=== PATIENT | female | born 1970 | race Caucasian/White ===

== ENCOUNTER → 2017-11-14 14:13 | Outpatient (REF) | payer MEDICAID, SELFPAY ==
[2017-11-14 14:55] LABS: Basophils # 0.1 K/mm3 (0-0.2); Basophils % 0.4 % (0.1-2.0); Eosinophils # 0.2 K/mm3 (0.0-0.4); Eosinophils % 1.5 % (0.1-12.0); Hematocrit 47.3 % (37.0-47.0); Hemoglobin 15.1 g/dL (12.2-16.2); Lymphocytes # 3.2 K/mm3 (0.7-4.5); Lymphocytes % 28.6 K/mm3 (10-50); Mean Corpuscular Hemoglobin 29.3 pg (27.0-31.2); Mean Corpuscular Volume 91.5 fl (81-99); Mean Platelet Volume 7.7 fl (7.4-10.4); Monocytes # 0.6 K/mm3 (0.1-1.0); Monocytes % 5.3 % (1.7-9.3); Neutrophils # 7.1 K/mm3 (1.8-7.8); Neutrophils % 64.3 % (37.0-80.0); Platelet Count 403 K/mm3 (142-424); Red Blood Count 5.17 M/mm3 (4.20-5.40); White Blood Count 11.1 K/mm3 (4.8-10.8)
[2017-11-14 16:06] LABS: Alanine Aminotransferase 36 U/L (12-78); Albumin Level 4.1 gm/dL (3.4-5.0); Albumin/Globulin Ratio 1.1 (1.1-1.8); Alkaline Phosphatase 51 U/L (46-116); Anion Gap 14.9 mEq/L (5-15); Aspartate Amino Transferase 13 U/L (15-37); Bilirubin,Total 0.4 mg/dL (0.2-1.0); Blood Urea Nitrogen 14 mg/dL (7-18); Calcium 9.7 mg/dL (8.5-10.1); Carbon Dioxide 30 mmol/L (21.0-32.0); Chloride 100 mmol/L (98-107); Chol/HDL Ratio 2.7 (1-3.5); Cholesterol 242 mg/dL (140-200); Creatinine,Serum 0.83 mg/dL (0.55-1.02); Estimated Glomerular Filt Rate 73 ml/min (>60); GFR (African American) 89 ML/MIN (>60); Globulin 3.6 gm/dl (1.3-3.2); Glucose 94 mg/dL (74-106); HDL Cholesterol 91 mg/dL (29-89); LDL Cholesterol 134 mg/dL (0-130); Potassium 3.9 mmoL/L (3.5-5.1); Sodium 141 mmol/L (136-145); T4 (Thyroxine) 9.8 ug/dl (4.7-13.3); Thyroid Stimulating Hormone 1.81 uIU/ml (0.358-3.740); Total Protein,Serum 7.7 gm/dL (6.4-8.2); Triglycerides 83 mg/dL (30-200); VLDL Cholesterol 17 mg/dL (0-40)
[2017-11-18 12:01] LABS: Vitamin D 25 Hydroxy 56.7 ng/mL (30.0-100.0)
== END ==
LOC: LAB 14:13
PROVIDERS: Visit Provider Physician Assistant
DX: E66.9 Obesity, unspecified (principal); Z68.42 Body mass index [BMI] 45.0-49.9, adult; E78.5 Hyperlipidemia, unspecified; I10 Essential (primary) hypertension; M19.90 Unspecified osteoarthritis, unspecified site
CPT/HCPCS: 80053; 80061; 82652; 84436; 84443; 85025

== ENCOUNTER → 2018-01-03 12:39 | Outpatient (POV) | payer MEDICAID, SELFPAY ==
[2018-01-03 12:42] VITALS: BP 165/90; PULSE 116; RESP 24; O2SAT 96; BMI 49.4
--- NOTE | 2018-01-03 13:09 | HMH.PMCON ---
Assessment and Plan (1) Fibromyalgia Current visit: Yes Status: Chronic Category: Medical Code(s): M79.7 - Fibromyalgia (2) Back pain Current visit: Yes Status: Chronic Category: Medical Code(s): M54.9 - Dorsalgia, unspecified (3) Bilateral knee pain Current visit: Yes Status: Chronic Category: Medical Code(s): M25.561 - Pain in right knee; M25.562 - Pain in left knee - Assessment and plan all Dx Assessment and Plan for all problems:: Patient is unable to take gabapentin or Lyrica for her fibromyalgia pain. Patient states that she is currently on Cymbalta and doing well with that. Patient is requesting a Medrol Dosepak for her flare today. We will call this in for her. We will also get her involved in physical therapy and start getting her home stretching program so she can stay active and help with her weight loss. Patient and I discussed injective therapy and potential nerve stimulation however at this time because of her fibromyalgia flare it is hard to determine what pain we should work on first. I will see this patient back in 2 weeks. This note was dictated using voice recognition software and may contain errors or omissions HPI - Data of Consult Consult date: 01/03/18 Requesting Physician: Yanet Gilbert APRN Primary Care Provider: SUSI Street Family Provider: Ngozi Proctor - Consult Narrative Reason for consult: Generalized pain History of present illness: Ms. Wong is a 47 year old female today for consultation for her general pain, back pain, bilateral knee pain. Patient rates her pain 8 out of 10 today. She states that walking, standing, any movement increases her pain while Epsom salt baths, heat therapy, medication, rest, TENS unit decreases her pain. 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 Patient recently moved back from [place]. Patient was being seen by Dr. ilya young for pain management where she received epidural injections, SI joint injections, knee injections. Patient stated her last SI joint injection she was unable to walk for 11 weeks due to IT band tightening. Patient states that she has a fibromyalgia flare today. Patient states that her doctor in [place] diagnosed her with that. Patient does not have any imaging with her today or reports from prior pain management. Patient current primary care physician is prescribing phentermine. For weight loss. Patient is trying to get down in her size so she can have bilateral knees were placed. Patient states she has had back surgery in the past. CC: Yanet Gilbert APRN [facility] History I have reviewed the patient's past medical history: Yes Medical History: Reports:: Depression, Hyperlipidemia, Hypertension, Palpitations Denies:: Diabetes Mellitus Type 1, Diabetes Mellitus Type 2 Other Medical History: Reports: Arthritis, Fibromyalgia Laterality Cases: Left: Carpal Tunnel Release, Bilateral: Tonsillectomy Other Surgeries: Yes: (x2), Hernia Repair, Hysterectomy-Partial, Other (carpel kayla) Amputation: No Fractures: No - *Social History Educational Level: Attended College Smoking Status: Never smoker Alcohol Intake: never Substance Use Type: denies use Occupational Status: unemployed, disabled - Psychiatric History Expresses thoughts of harming self/others: None Suicide Plan Description: No Plan Pschychiatric History:: Reports:: Depression *Family Hx:: Thyroid Disorder, Cancer, Coronary Artery Disease, Diabetes Review of Systems - Review of Systems ROS General: no recent weight change, no fever, no sleep disturbances Respiratory: no cough, no shortness of air, no recurring pulmonary infections Cardiovascular/Peripheral Vascular: No chest pain, No palpitations, no edema, no shortness of breath. Gastrointestinal: no incontinence, normal bowel movements reported Genitourinary: no incontinence Musculoskeletal: Neurolysed pain, back pain, bilateral knee pain Psy
--- NOTE | 2018-01-03 13:13 | P.CONS_ITS ---
Assessment and Plan (1) Fibromyalgia Current visit: Yes Status: Chronic Category: Medical Code(s): M79.7 - Fibromyalgia (2) Back pain Current visit: Yes Status: Chronic Category: Medical Code(s): M54.9 - Dorsalgia, unspecified (3) Bilateral knee pain Current visit: Yes Status: Chronic Category: Medical Code(s): M25.561 - Pain in right knee; M25.562 - Pain in left knee - Assessment and plan all Dx Assessment and Plan for all problems:: Patient is unable to take gabapentin or Lyrica for her fibromyalgia pain. Patient states that she is currently on Cymbalta and doing well with that. Patient is requesting a Medrol Dosepak for her flare today. We will call this in for her. We will also get her involved in physical therapy and start getting her home stretching program so she can stay active and help with her weight loss. Patient and I discussed injective therapy and potential nerve stimulation however at this time because of her fibromyalgia flare it is hard to determine what pain we should work on first. I will see this patient back in 2 weeks. This note was dictated using voice recognition software and may contain errors or omissions HPI - Data of Consult Consult date: 01/03/18 Requesting Physician: Yanet Gilbert APRN Primary Care Provider: SUSI Street Family Provider: Ngozi Proctor - Consult Narrative Reason for consult: Generalized pain History of present illness: Ms. Wong is a 47 year old female today for consultation for her general pain, back pain, bilateral knee pain. Patient rates her pain 8 out of 10 today. She states that walking, standing, any movement increases her pain while Epsom salt baths, heat therapy, medication, rest, TENS unit decreases her pain. 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 Patient was being seen by Dr. ilya young for pain management where she received epidural injections, SI joint injections, knee injections. Patient stated her last SI joint injection she was unable to walk for 11 weeks due to IT band tightening. Patient states that she has a fibromyalgia flare today. Patient states that her doctor in [place] diagnosed her with that. Patient does not have any imaging with her today or reports from prior pain management. Patient current primary care physician is prescribing phentermine. For weight loss. Patient is trying to get down in her size so she can have bilateral knees were placed. Patient states she has had back surgery in the past. CC: Yanet Gilbert APRN [facility] History I have reviewed the patient's past medical history: Yes Medical History: Reports:: Depression, Hyperlipidemia, Hypertension, Palpitations Denies:: Diabetes Mellitus Type 1, Diabetes Mellitus Type 2 Other Medical History: Reports: Arthritis, Fibromyalgia Laterality Cases: Left: Carpal Tunnel Release, Bilateral: Tonsillectomy Other Surgeries: Yes: (x2), Hernia Repair, Hysterectomy-Partial, Other (carpel kayla) Amputation: No Fractures: No - *Social History Educational Level: Attended College Smoking Status: Never smoker Alcohol Intake: never Substance Use Type: denies use Occupational Status: unemployed, disabled - Psychiatric History Expresses thoughts of harming self/others: None Suicide Plan Description: No Plan Pschychiatric History:: Reports:: Depression *Family Hx:: Thyroid Disorder, Cancer, Coronary Artery Disease, Diabetes Review of Systems - Review of Systems ROS General: no recent weight change, no fever, no sleep
--- NOTE | 2018-01-03 13:35 | PC.PHONENOTE ---
called in RX for MEdrol dose pack to pt's pharmacy
== END ==
PROVIDERS: Family Provider Family Medicine Geriatric Medicine; PCP Physician Assistant; Visit Provider Clinical Nurse Specialist Family Health
DX: M79.7 Fibromyalgia (principal); M54.9 Dorsalgia, unspecified
CPT/HCPCS: 99202

== ENCOUNTER → 2018-01-31 10:56 | Outpatient (POV) | payer MEDICAID, SELFPAY ==
[2018-01-31 11:07] VITALS: BP 116/69; PULSE 113; RESP 20; TEMP 36.7; O2SAT 98; BMI 50.2
--- NOTE | 2018-01-31 11:19 | HMH.PAINSOAP ---
[facility] Pain Management SOAP Note Subjective:: Patient is a pleasant 39-year-old white female who presents today for follow-up. At last visit patient was consulted and we had decided on and potentially massage therapy for her. Patient was unable to attend her physical therapy due to sickness. Patient is interested in pursuing that today. Patient also call her insurance company and she is a candidate for massages. Patient states most of her pain is generalized however she has extreme pain in her knees and hand. Patient status post carpal tunnel surgery. She has a follow-up with her surgeon on the of this month. Patient rates her pain a 7 out of 10 today. Patient has tried injective therapy in the past including SI joint injections, knee injections, epidurals. Patient states she is a candidate for bilateral knee replacement. Patient is also continuing working with weight loss. ROS General: no recent weight change, no fever, no sleep disturbances Respiratory: no cough, no shortness of air, no recurring pulmonary infections Cardiovascular/Peripheral Vascular: No chest pain, No palpitations, no edema, no shortness of breath. Gastrointestinal: no incontinence, normal bowel movements reported Genitourinary: no incontinence Musculoskeletal: Generalized pain, bilateral knee pain, right hand pain Psychiatric: normal mood/ affect, [denies depression], [denies anxiety] Neurological: [denies weakness in extremities], [denies balance issues] Objective:: Physical Exam General: Alert and oriented x3, no acute distress, pleasant and cooperative, [on room air] Lungs: Resps E/U, Symmetrical chest expansion, Eyes: PERRL Musculoskeletal: Flexion and extension of lumbar spine somewhat guarded secondary to pain, deep tendon reflexes normal, strength in upper and lower extremities [5/5], [abnormal gait noted] Neurological: speech clear, 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 I will see her back in 2 months. This note was dictated using voice recognition software and may contain errors or omissions
--- NOTE | 2018-01-31 11:22 | P.CONS_ITS ---
[facility] Pain Management SOAP Note Subjective:: Patient is a pleasant 39-year-old white female who presents today for follow- up. At last visit patient was consulted and we had decided on and potentially massage therapy for her. Patient was unable to attend her physical therapy due to sickness. Patient is interested in pursuing that today. Patient also call her insurance company and she is a candidate for massages. Patient states most of her pain is generalized however she has extreme pain in her knees and hand. Patient status post carpal tunnel surgery. She has a follow-up with her surgeon on the of this month. Patient rates her pain a 7 out of 10 today. Patient has tried injective therapy in the past including SI joint injections , knee injections, epidurals. Patient states she is a candidate for bilateral knee replacement. Patient is also continuing working with weight loss. ROS General: no recent weight change, no fever, no sleep disturbances Respiratory: no cough, no shortness of air, no recurring pulmonary infections Cardiovascular/Peripheral Vascular: No chest pain, No palpitations, no edema, no shortness of breath. Gastrointestinal: no incontinence, normal bowel movements reported Genitourinary: no incontinence Musculoskeletal: Generalized pain, bilateral knee pain, right hand pain Psychiatric: normal mood/ affect, [denies depression], [denies anxiety] Neurological: [denies weakness in extremities], [denies balance issues] Objective:: Physical Exam General: Alert and oriented x3, no acute distress, pleasant and cooperative, [ on room air] Lungs: Resps E/U, Symmetrical chest expansion, Eyes: PERRL Musculoskeletal: Flexion and extension of lumbar spine somewhat guarded secondary to pain, deep tendon reflexes normal, strength in upper and lower extremities [5/5], [abnormal gait noted] Neurological: speech clear, hygiene teacher equal, no gross sensory deficits Assessment:: Fibromyalgia, back pain, bilateral knee pain Plan:: We will reorder physical therapy along with massage therapy for the patient. I will see her back in 2 months. This note was dictated using voice recognition software and may contain errors or omissions
== END ==
PROVIDERS: Family Provider Family Medicine Geriatric Medicine; PCP Physician Assistant; Visit Provider Clinical Nurse Specialist Family Health
DX: M79.7 Fibromyalgia (principal); M25.562 Pain in left knee; M25.561 Pain in right knee
CPT/HCPCS: 99212

== ENCOUNTER 2018-03-10 11:00 | Outpatient (RCR) | payer MEDICAID, SELFPAY ==
--- NOTE | 2018-02-03 15:53 | HMH.PTOPEV ---
Rehab Outpatient Evaluation Rehab OP Evaluation Start: 02/03/18 15:31 Freq: Status: Active Protocol: Document 02/03/18 15:31 SHERIF (Rec: 02/03/18 15:52 SHERIF [id number]) Electronically Signed By Jacob Mcnamara, PT 02/03/18 15:31 Outpatient Therapy Subjective History Subjective History Pt reports h/o chronic LBP for ~4 yrs since sustaining a work-related injury in 2013. Pt reports injury to L4-5 disc , with sx. following, L4-5 fusion/discectomy. Pt also reports recent fibromyalgia ' flare-up' over the last 5 weeks which has caused B LE pain, and increased LBP. Chief Complaint Pain Stiff Weakness Symptom Type Ache Throb Sharp Dull Stabbing Burning Symptoms Relieved By Rest/Positioning Heat OTC Meds Symptoms Aggravated By Sitting Standing Physical Activity Walking Prior Functional Limitations Lifting Housework Standing Sitting Walking Current Functional Limitations Lifting Housework Standing Sitting Walking Symptom Description Constant but Variable Level of pain today (0-10) 6 Pain scale - at its best (0-10) 6 Pain scale - at its worst (0-10) 10 Lumbopelvic Eval Posture Thoracic Spine Posture Standing Position Neutral Lumbar Spine Posture Standing Position Increased Lordosis Assistive device Assistive Devices None / NA Palapation tenderness left paraspinal tenderness Yes: 2/4 buttock tenderness Yes: 1/4 right paraspinal tenderness Yes: 3/4 buttock tenderness Yes: 3/4 Accessory Movement L3 bilateral L4 bilateral L5 bilateral S1 bilateral Range of Motion Lumbar Spine Active Flexion Range of 0-25 Motion (degrees) Lumbar Spine Active Extension Range of 0-5
== END 2018-03-10 11:01 | disposition home or self-care (01) ==
LOC: PT 11:00
PROVIDERS: Family Provider Family Medicine Geriatric Medicine; PCP Physician Assistant; Visit Provider Anesthesiology
DX: M79.7 Fibromyalgia (principal); M54.5 Low back pain; M79.604 Pain in right leg; M79.605 Pain in left leg
CPT/HCPCS: 97010; 97014; 97035; 97140; 97163; G0283

== ENCOUNTER → 2018-03-21 08:52 | Outpatient (POV) | payer MEDICAID, SELFPAY ==
[2018-03-21 09:12] VITALS: BP 121/82; PULSE 99; RESP 20; O2SAT 97; BMI 49.4
--- NOTE | 2018-03-21 11:32 | HMH.PAINSOAP ---
[facility] Pain Management SOAP Note Subjective:: Patient is a pleasant 47-year-old white female who presents today for follow-up. Patient has had a recent increase of her pain. Patient states she had to go to the ER due to this. Patient did have an x-ray in the ER did not show anything acute. Patient has not had an MRI since her lumbar surgery. Patient has only been able to attend 2 visits to her physical therapy due to increased pain. Patient states she was unable to make her follow-up appointments with her surgeon for her carpal tunnel due to the pain. She rates her pain 8 out of 10 today. She states she is having some muscle spasms as well. Patient states she has a new radiation of pain down into her left leg from her low back ROS General: no recent weight change, no fever, no sleep disturbances Respiratory: no cough, no shortness of air, no recurring pulmonary infections Cardiovascular/Peripheral Vascular: No chest pain, No palpitations, no edema, no shortness of breath. Gastrointestinal: no incontinence, normal bowel movements reported Genitourinary: no incontinence Musculoskeletal: Generalized pain, bilateral knee pain, low back pain Psychiatric: normal mood/ affect Neurological: [denies weakness in extremities], [denies balance issues] Objective:: Physical Exam General: Alert and oriented x3, no acute distress, pleasant and cooperative, [on room air] Lungs: Resps E/U, Symmetrical chest expansion Eyes: PERRL Musculoskeletal: Flexion and extension of lumbar spine somewhat guarded secondary to pain, deep tendon reflexes normal, strength in upper and lower extremities [5/5], antalgic gait noted Neurological: speech clear, 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 Patient is having a new pain down her left leg that is concerning to me. I will follow-up with her after her lumbar MRI. Patient will hold off on her physical therapy until we can determine pathology. This note was dictated using voice recognition software and may contain errors or omissions
--- NOTE | 2018-03-21 11:35 | P.CONS_ITS ---
[facility] Pain Management SOAP Note Subjective:: Patient is a pleasant 47-year-old white female who presents today for follow- up. Patient has had a recent increase of her pain. Patient states she had to go to the ER due to this. Patient did have an x-ray in the ER did not show anything acute. Patient has not had an MRI since her lumbar surgery. Patient has only been able to attend 2 visits to her physical therapy due to increased pain. Patient states she was unable to make her follow-up appointments with her surgeon for her carpal tunnel due to the pain. She rates her pain 8 out of 10 today. She states she is having some muscle spasms as well. Patient states she has a new radiation of pain down into her left leg from her low back ROS General: no recent weight change, no fever, no sleep disturbances Respiratory: no cough, no shortness of air, no recurring pulmonary infections Cardiovascular/Peripheral Vascular: No chest pain, No palpitations, no edema, no shortness of breath. Gastrointestinal: no incontinence, normal bowel movements reported Genitourinary: no incontinence Musculoskeletal: Generalized pain, bilateral knee pain, low back pain Psychiatric: normal mood/ affect Neurological: [denies weakness in extremities], [denies balance issues] Objective:: Physical Exam General: Alert and oriented x3, no acute distress, pleasant and cooperative, [ on room air] Lungs: Resps E/U, Symmetrical chest expansion Eyes: PERRL Musculoskeletal: Flexion and extension of lumbar spine somewhat guarded secondary to pain, deep tendon reflexes normal, strength in upper and lower extremities [5/5], antalgic gait noted Neurological: speech clear, 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 Patient is having a new pain down her left leg that is concerning to me. I will follow- up with her after her lumbar MRI. Patient will hold off on her physical therapy until we can determine pathology. This note was dictated using voice recognition software and may contain errors or omissions
== END ==
PROVIDERS: Family Provider Family Medicine Geriatric Medicine; PCP Physician Assistant; Visit Provider Clinical Nurse Specialist Family Health
DX: M25.562 Pain in left knee (principal); M25.561 Pain in right knee; M79.7 Fibromyalgia
CPT/HCPCS: 99212

== ENCOUNTER → 2018-03-28 09:08 | Outpatient (CLI) | payer MEDICAID, SELFPAY ==
--- NOTE | 2018-03-28 09:10 | MR_ITS ---
MR lumbar spine wo con, MR 3-d myelogram/MRCP HISTORY: PT states low back pain, back spasms, and LT buttock pain. Prior surgery in 2016 ITS.REASON: WORSENING BACK PAIN ORDERING PHYSICIAN: Yanet Gilbert PATIENT AGE: 47 years Comparison: X-RAY 03/04/18 TECHNIQUE: Standard multiplanar multiecho sequences are performed without contrast. 3-D MIP and myelographic images are also rendered and reviewed FINDINGS: There is normal alignment. Spinal cord ends at the L1-L2 level. T 10-11: Mild degenerative disc disease. T11-T12: Degenerative disc disease with small right paracentral disc osteophyte complex with minimal right lateral recess narrowing. T12-L1, L1-L2 and L2-L3 have an unremarkable appearance. L3-L4: Minimal bulging disc minimal facet and ligamentum hypertrophy with mild bilateral lateral recess and foraminal narrowing. L4-L5: Significant artifact from interpedicular screws. There is been prior posterior fusion of L4-L5 and L5-S1. No evidence of residual or recurrent disc herniation. Disc spacer device is present. No evidence of canal stenosis or foraminal narrowing. L5-S1: Postsurgical changes with disc spacer device present no evidence of canal stenosis or disc herniation or foraminal narrowing. Lipoma is present in T11 vertebral body incidentally noted. IMPRESSION: 1. Postsurgical changes at L4-L5 and L5-S1. 2. Minimal bulging disc at L3-L4 with mild bilateral lateral recess and foraminal narrowing from facet and ligamentum hypertrophy. 3. Degenerative disc disease at T10-T11 and T11-T12 with suggestion of a small right disc osteophyte complex at T11-T12 with minimal right-sided lateral recess narrowing 4. No disc herniation or canal stenosis
== END ==
PROVIDERS: Family Provider Family Medicine Geriatric Medicine; PCP Physician Assistant; Visit Provider Clinical Nurse Specialist Family Health
DX: M54.5 Low back pain (principal)
CPT/HCPCS: 72148; 76376

== ENCOUNTER 2018-10-10 21:46 | Inpatient (IN) ==
[2018-10-10 22:13] LABS: Basophils # 0.1 K/mm3 (0-0.2); Basophils % 0.6 % (0.1-2.0); Eosinophils # 0.2 K/mm3 (0.0-0.4); Eosinophils % 2.4 % (0.1-12.0); Hematocrit 44.9 % (37.0-47.0); Hemoglobin 14.2 g/dL (12.2-16.2); Lymphocytes # 2.1 K/mm3 (0.7-4.5); Lymphocytes % 21.9 % (10-50); Mean Corpuscular HGB Conc 31.7 g/dL (31.8-35.4); Mean Corpuscular Volume 91.7 fl (81-99); Monocytes # 0.4 K/mm3 (0.1-1.0); Monocytes % 4.6 % (1.7-9.3); Neutrophils # 6.6 K/mm3 (1.8-7.8); Neutrophils % 70.4 % (37.0-80.0); Platelet Count 378 K/mm3 (142-424); Red Cell Distribution Width 13.6 % (11.5-17.5); White Blood Count 9.4 K/mm3 (4.8-10.8)
[2018-10-10 22:24] LABS: Albumin Level 3.2 gm/dL (3.4-5.0); Albumin/Globulin Ratio 0.9 (1.1-1.8); Anion Gap 12.7 mEq/L (5-15); Bilirubin,Total 0.5 mg/dL (0.2-1.0); Calcium 8.7 mg/dL (8.5-10.1); Globulin 3.7 gm/dl (1.3-3.2); Potassium 3.7 mmoL/L (3.5-5.1); Total Protein,Serum 6.9 gm/dL (6.4-8.2)
--- NOTE | 2018-10-11 00:01 | Emergency Department Note ---
ED Disposition Clinical Impression: Community acquired pneumonia Qualifiers: Laterality: right Lung location: lower lobe of lung Qualified Code(s): J18.1 - Lobar pneumonia, unspecified organism Obesity Qualifiers: Obesity type: due to excess calories Obesity classification: adult class 2 (BMI 35 - 39.9) Serious obesity comorbidity presence: with serious comorbidity Body mass index: BMI 38.0-38.9 Qualified Code(s): E66.01 - Morbid (severe) obesity due to excess calories; Z68.38 - Body mass index (BMI) 38.0-38.9, adult Hypertension Qualifiers: Hypertension type: essential hypertension Qualified Code(s): I10 - Essential (primary) hypertension Disposition: Admitted as Observation Condition on Discharge: Good Referrals: Anitra Horton PA [Primary Care Provider] - - Critical Care Critical Care Time: No Attestation: On 10/10/18, the high probability of a clinically significant, sudden or life threatening deterioration of the following system(s) required my full and direct attention, intervention and personal management. The time I documented below is in addition to time spent performing reported procedures but includes the following listed in this critical care notation. Medical Decision Making - Medical Records Medical records reviewed: Yes: I reviewed the patient's medical records. - [place] Inquiry Pt receiving controlled substance: No Vital Signs: 10/10/18 21:48 10/10/18 22:12 10/10/18 22:15 Temperature 98.0 F Temperature Source Oral Pulse Rate [Right Brachial] 126 H 118 H Respiratory Rate 20 18 Blood Pressure [Right Arm] 170/110 H 200/149 H 153/96 H Blood Pressure Mean [Right Arm] 130 166 115 Blood Pressure Source [Right Arm] Manual Cuff/ Doppler Automatic Cuff Automatic Cuff Blood Pressure Position [Right Arm] Sitting Sitting Sitting 02 Sat by Pulse Oximetry 95 95 94 L Oxygen Delivery Method Room Air Room Air Nasal Cannula Oxygen Flow Rate (LPM) 2 10/10/18 22:50 10/10/18 23:25 10/10/18 23:30 Temperature Temperature Source Pulse Rate [Right Brachial] 114 H 116 H 120 H Respiratory Rate 20 20 18 Blood Pressure [Right Arm] 171/127 H 167/118 H 172/110 H Blood Pressure Mean [Right Arm] 141 134 130 Blood Pressure Source [Right Arm] Automatic Cuff Automatic Cuff Automatic Cuff Blood Pressure Position [Right Arm] Sitting Sitting Sitting 02 Sat by Pulse Oximetry 96 96 96 Oxygen Delivery Method Nasal Cannula Nasal Cannula Nasal Cannula Oxygen Flow Rate (LPM) 2 2 2 - Lab Data Lab results reviewed: Yes: I reviewed the patient's lab results. Lab Results 10/10/18 22:00: WBC 9.4, RBC 4.90, Hgb 14.2, Hct 44.9, MCV 91.7, MCH 29.0, MCHC 31.7 L, RDW 13.6, Plt Count 378, MPV 7.0 L, Neut % (Auto) 70.4, Lymph % (Auto) 21.9, [place] % (Auto) 4.6, Eos % (Auto) 2.4, Baso % (Auto) 0.6, Neut # (Auto) 6.6, Lymph # (Auto) 2.1, [place] # (Auto) 0.4, Eos # (Auto) 0.2, Baso # (Auto) 0.1 10/10/18 22:00: Sodium 141, Potassium 3.7, Chloride 106, Carbon Dioxide 26, Anion Gap 12.7, BUN 12, Creatinine 0.97, Estimated Creat Clear 127, Estimated GFR 61, Est GFR ( Amer) 74, Glucose 115 H, Calcium 8.7, Total Bilirubin 0.5, AST 13 L, ALT 26, Alkaline Phosphatase 47, Total Protein 6.9, Albumin 3.2 L , Globulin 3.7 H, Albumin/Globulin Ratio 0.9 L 10/10/18 22:00: Lactate 0.8 10/10/18 22:00: B-Natriuretic Peptide 455 H Result diagrams: 10/10/18 22:00 10/10/18 22:00 Orders (Tests/Meds): ED MEDICATIONS Generic Name Dose Route Start Last Admin Trade Name Freq PRN Reason Stop Dose Admin Levofloxacin/Dextrose 750 mg in 150 mls @ 100 mls/hr 10/10/18 23:45 10/10/18 23:54 Levofloxacin 750mg/150ml Premix IV 10/24/18 23:44 100 mls/hr Q24H BAILEY Administration Protocol Sodium Chloride 10 ml 10/10/18 22:19 Saline Flush 10ml Syringe IV 11/09/18 22:18 NEEDED PRN Maintain IV Site Discontinued Medications Generic Name Dose Route Start Last Admin Trade Name Freq PRN Reason Stop Dose Admin Methylprednisolone Sodium Succinate 125 mg 10/11/18 00:00 Solu-Medrol 125mg/2ml Vial IV 10/11/18 00:01 ONCE ONE ORDERS Category Date Time Status XR chest 2V Stat Exams 10/10/18 21:52 Taken Troponin I Stat Lab 10/11/18 00:00 Ordered Blood Culture Stat Micro 10/10/18 22:00 Received Sputum Culture & Gram Stain Stat Micro 10/11/18 00:04 Ordered 12-lead EKG Request [ECG Request by /Itz] Stat Y 10/10/18 22:19 Ordered - Radiology Data #1 Image(s): Chest Image Reviewed: Yes I reviewed the patient's radiology image Preliminary Findings: Abnormal (possible rt cap) - ECG Data Tracing #1 Normal Sinus Rhythm: Yes Ischemic changes: non-specific ST-T wave changes Resp/SOB HPI - General Chief Complaint: Shortness of Breath/Dyspnea Stated Complaint: SOA Time Seen by Provider: 10/10/18 22:00 Mode of Arrival: Family Vehicle Source of Information: Patient, Spouse, Medical Record Limitations: No Limitations Description of Symptoms (Recalled from ER Triage Doc. by RN): Pt states she is having SOA x 3 days, with a cough. She denies any CP, fever or other symptoms. - History of Present Illness over the last few days has pinkish sputum with no fever but has sob - no tob has hx of bronchitis MD Complaint: shortness of breath, cough Onset (ago): hour(s) Severity: moderate Treatment prior to arrival: none - Related Data Home oxygen amount: none Home Medications Medication Instructions Recorded Confirmed famotidine 20 mg tablet 20 mg PO QHS 11/14/17 10/10/18 ondansetron 8 mg disintegrating 8 mg PO Q12H PRN 11/14/17 10/10/18 tablet tizanidine 4 mg capsule 8 mg PO QHS cap 11/14/17 10/10/18 Cholecalciferol (Vitamin D3) 2,000 unit PO DAILY 01/31/18 10/10/18 [Vitamin D3] Magnesium 250 mg PO DAILY 01/31/18 10/10/18 Vitamin E 1,000 unit PO DAILY 01/31/18 10/10/18 Duloxetine HCl [Cymbalta] 60 mg PO BID 08/16/18 10/10/18 Linaclotide [Linzess] 72 mcg PO QAM 08/16/18 10/10/18 Losartan/Hydrochlorothiazide 1 tab PO DAILY 08/16/18 10/10/18 [Hyzaar 100-25 Tablet] Omeprazole [Omeprazole 20mg 20 mg PO DAILY 08/16/18 10/10/18 Capsule] Minocycline HCl 100 mg PO BID 10/10/18 10/10/18 Previous Rx's Medication Instructions Recorded ibuprofen 800 mg tablet 800 mg PO TID PRN #90 tab 06/15/18 Allergies Allergy/AdvReac Type Severity Reaction Status Date / Time azithromycin Allergy Mild Verified 10/10/18 21:58 [From ZITHROMAX Z-NASIR] morphine [MORPHINE] Allergy Mild Verified 10/10/18 21:58 [facility] History - Hepatitis A Screen Drug use history?: No High risk sexual behaviors?: No History of sexually transmitted infection?: No Currently employed?: No Childcare worker?: No Do you have indoor plumbing?: Yes Do you have electricity?: Yes Attestation statement:: This patient has been screened for Hepatitis A risk factors. I have reviewed the patient's past medical history: Yes Medical History: Reports:: Anxiety, Depression, Hyperlipidemia, Hypertension, Palpitations Denies:: Diabetes Mellitus Type 1, Diabetes Mellitus Type 2 Other Medical History: Reports: Arthritis, Fibromyalgia Comment: PTSD, Chronic constipation, Carpal tunnel Laterality Cases: Left: Carpal Tunnel Release, Bilateral: Tonsillectomy Other Surgeries: Yes: (x2), Hernia Repair, Hysterectomy-Partial, Other (carpel kayla) Amputation: No Fractures: No Comment: L4 & L5 infusion, gallbladder - Social History Smoking Status: Never smoker Alcohol Intake: never Substance Use Type: denies use Occupational Status: unemployed, disabled - Psychiatric History Expresses thoughts of harming self/others: None Suicide Plan Description: No Plan Pschychiatric History:: Reports:: Anxiety, Depression Family Hx:: Thyroid Disorder, Cancer, Coronary Artery Disease, Diabetes ROS Obtained: Yes All systems reviewed & no additional complaints - Constitutional Constitutional: Denies fever(s) - Eyes Eyes: Denies change in vision - ENT Ears, Nose, Mouth, and Throat: Denies otalgia, Denies sore throat - Cardiovascular Cardiovascular: Denies chest pain, Reports dyspnea - Respiratory Respiratory: Yes change in phlegm color, Yes cough, Yes dyspnea, No coughing up blood, No pain on inspiration - Gastrointestinal Gastrointestingal: Denies: abdominal pain - Genitourinary Female Genitourinary: Denies dysuria - Musculoskeletal Musculoskeletal: Denies joint pain - Integumentary/Breasts Skin/Breast: Denies rash - Neurologic Neurologic: Denies seizure-like activity Physical Exam - General General appearance: alert, in no apparent distress, obese - Head Head exam: atraumatic - Eye Eye exam: Present: PERRL, EOMI. Absent: scleral icterus - ENT ENT exam: Present: mucous membranes moist - Neck Neck exam: Present: trachea midline - Respiratory Respiratory exam: Present: other (rhonchi ). Absent: respiratory distress - Cardiovascular Cardiovascular exam: Present: regular rate, systolic murmur, +S4. Absent: rubs - Abdominal Exam Abdominal exam: Present: soft - Extremities Exam Extremities exam: Present: pedal edema. Absent: calf tenderness - Neurological Exam Neurological exam: Present: alert, oriented X3, CN II-XII intact - Psychiatric Psychiatric exam: Present: normal affect - Skin Skin exam: Absent: rash
[2018-10-11 06:51] LABS: Basophils % 0.2 % (0.1-2.0); Eosinophils % 0.1 % (0.1-12.0); Hematocrit 42.7 % (37.0-47.0); Hemoglobin 13.6 g/dL (12.2-16.2); Lymphocytes # 0.6 K/mm3 (0.7-4.5); Lymphocytes % 5.8 % (10-50); Mean Corpuscular HGB Conc 31.9 g/dL (31.8-35.4); Mean Corpuscular Hemoglobin 29.5 pg (27.0-31.2); Mean Corpuscular Volume 92.4 fl (81-99); Mean Platelet Volume 7.5 fl (7.4-10.4); Monocytes # 0.1 K/mm3 (0.1-1.0); Monocytes % 1.2 % (1.7-9.3); Neutrophils # 9.3 K/mm3 (1.8-7.8); Neutrophils % 92.7 % (37.0-80.0); Platelet Count 355 K/mm3 (142-424); Red Blood Count 4.62 M/mm3 (4.20-5.40); Red Cell Distribution Width 13.6 % (11.5-17.5)
[2018-10-11 07:14] LABS: Anion Gap 12.8 mEq/L (5-15); Calcium 8.6 mg/dL (8.5-10.1); Chol/HDL Ratio 2.5 (1-3.5); Potassium 3.8 mmoL/L (3.5-5.1)
--- NOTE | 2018-10-11 07:41 | Pharmacy Consult Notes ---
[facility] Pharmacy VTE Monitoring - Patient Demographics Admission date: 10/10/18 Report Date: 10/11/18 Time: 07:40 Allergies/Adverse Reactions: Patient Allergies azithromycin [From ZITHROMAX Z-NASIR] Allergy (Mild, Verified 10/10/18 21:58) morphine [MORPHINE] Allergy (Mild, Verified 10/10/18 21:58) Height: 1.57 m Weight: 115.354 kg Patient Problems: Current Active Problems (Last Updated 11/15/17 @ 08:[address]) Community acquired pneumonia (Acute) Hypertension (Acute) Obesity (Chronic) - VTE Risk Labs: VTE Related Lab Results Hgb 13.6 g/dL (12.2-16.2) 10/11/18 05:50 Hct 42.7 % (37.0-47.0) 10/11/18 05:50 Plt Count 355 K/mm3 (142-424) 10/11/18 05:50 BUN 12 mg/dL (7-18) 10/11/18 05:50 Creatinine 1.03 mg/dL (0.55-1.02) H 10/11/18 05:50 Estimated Creat Clear 52 mL/min (50-200) 10/11/18 05:50 Was VTE Risk Assessment Performed: Yes VTE Score: 3 VTE Risk Level: Low Risk - Prophylaxis VTE Prophylaxis Ordered?: Yes Types of VTE Prophylaxis: TEDS Knee High Location of Applied Device: Bilateral Lower Extremeties - VTE Diagnosis Confirmed Treatment or plan recommended: Continue Current Treatment
[2018-10-11 09:00] LABS: Lymphocytes % 3 % (10-50); Neutrophils % 97 % (42-76); RBC Morphology Normal; Total Cells Counted 100
--- NOTE | 2018-10-11 11:02 | History & Physical Report ---
*Admission Date: 10/10/18 *Chief complaint: sob *History of present illness: this wf has been having [facility] History Medical History: Reports:: Anxiety, Depression, Hyperlipidemia, Hypertension, Palpitations Denies:: Diabetes Mellitus Type 1, Diabetes Mellitus Type 2 Have you ever received a pneumonia vaccine?: No Have you received a flu vaccine this season?: No Other Medical History: Reports: Arthritis, Fibromyalgia Laterality Cases: Bilateral: Carpal Tunnel Release, Tonsillectomy Other Surgeries: Yes: (x2), Hernia Repair, Hysterectomy-Partial, Other (carpel kayla) Amputation: No Fractures: No - *Social History Educational Level: Completed College Smoking Status: Never smoker Alcohol Intake: never Substance Use Type: denies use Occupational Status: employed Housing: house Travel in the last 8 weeks: [facility] the [facility] - Psychiatric History Expresses thoughts of harming self/others: None Suicide Plan Description: No Plan Pschychiatric History:: Reports:: Anxiety, Depression *Family Hx:: Thyroid Disorder, Cancer, Coronary Artery Disease, Diabetes Review of Systems - *Neurologic Denies seizure-like activity Meds Home Medications Medication Instructions Recorded Confirmed Type famotidine 20 mg tablet 20 mg PO QHS 11/14/17 10/10/18 History tizanidine 4 mg capsule 8 mg PO QHS cap 11/14/17 10/10/18 History Cholecalciferol (Vitamin D3) 2,000 unit PO DAILY 01/31/18 10/10/18 History [Vitamin D3] Magnesium 250 mg PO DAILY 01/31/18 10/10/18 History Vitamin E 1,000 unit PO DAILY 01/31/18 10/10/18 History Duloxetine HCl [Cymbalta] 60 mg PO BID 08/16/18 10/10/18 History Linaclotide [Linzess] 72 mcg PO QAM 08/16/18 10/10/18 History Losartan/Hydrochlorothiazide 1 tab PO DAILY 08/16/18 10/10/18 History [Hyzaar 100-25 Tablet] Omeprazole [Omeprazole 20mg 20 mg PO DAILY 08/16/18 10/10/18 History Capsule] Allergies Allergy/AdvReac Type Severity Reaction Status Date / Time azithromycin Allergy Mild Verified 10/10/18 21:58 [From ZITHROMAX Z-NASIR] morphine [MORPHINE] Allergy Mild Verified 10/10/18 21:58 Exam Vital signs and Labs for Last 24 Hours: Temp Pulse Resp BP Pulse Ox 98.4 F 128 H 18 152/75 H 92 L 10/11/18 08:00 10/11/18 08:00 10/11/18 08:00 10/11/18 08:00 10/11/18 08:00 Laboratory Results - last 24 hr 10/10/18 22:00: WBC 9.4, RBC 4.90, Hgb 14.2, Hct 44.9, MCV 91.7, MCH 29.0, MCHC 31.7 L, RDW 13.6, Plt Count 378, MPV 7.0 L, Neut % (Auto) 70.4, Lymph % (Auto) 21.9, [place] % (Auto) 4.6, Eos % (Auto) 2.4, Baso % (Auto) 0.6, Neut # (Auto) 6.6, Lymph # (Auto) 2.1, [place] # (Auto) 0.4, Eos # (Auto) 0.2, Baso # (Auto) 0.1 10/10/18 22:00: Sodium 141, Potassium 3.7, Chloride 106, Carbon Dioxide 26, Anion Gap 12.7, BUN 12, Creatinine 0.97, Estimated Creat Clear 127, Estimated GFR 61, Est GFR ( Amer) 74, Glucose 115 H, Calcium 8.7, Total Bilirubin 0.5, AST 13 L, ALT 26, Alkaline Phosphatase 47, Total Protein 6.9, Albumin 3.2 L , Globulin 3.7 H, Albumin/Globulin Ratio 0.9 L 10/10/18 22:00: Lactate 0.8 10/10/18 22:00: B-Natriuretic Peptide 455 H 10/11/18 00:00: Troponin I 0.07 H 10/11/18 00:00: ESR 32 H 10/11/18 00:00: Mycoplasma pneumon IgM Non-reactive 10/11/18 03:25: Troponin I 0.07 H 10/11/18 05:50: WBC 10.0, RBC 4.62, Hgb 13.6, Hct 42.7, MCV 92.4, MCH 29.5, MCHC 31.9, RDW 13.6, Plt Count 355, MPV 7.5, Neut % (Auto) 92.7 H, Lymph % (Auto) 5.8 L, [place] % (Auto) 1.2 L, Eos % (Auto) 0.1, Baso % (Auto) 0.2, Neut # (Auto) 9.3 H, Lymph # (Auto) 0.6 L, [place] # (Auto) 0.1, Eos # (Auto) 0.0, Baso # (Auto) 0.0, Total Counted 100, Neutrophils % (Manual) 97 H, Lymphocytes % (Manual) 3 L, Platelet Estimate Normal, RBC Morphology Normal 10/11/18 05:50: Sodium 140, Potassium 3.8, Chloride 106, Carbon Dioxide 25, Anion Gap 12.8, BUN 12, Creatinine 1.03 H, Estimated Creat Clear 52, Estimated GFR 57 L, Est GFR ( Amer) 69, Glucose 154 H D, Calcium 8.6, Magnesium 1.8, Troponin I 0.05, Triglycerides 63, Cholesterol 183, LDL Cholesterol 96, VLDL Cholesterol 13, HDL Cholesterol 74, Cholesterol/HDL Ratio 2.5 I & O for Last 24 hours: Intake & Output 10/08/18 10/09/18 10/10/18 10/11/18 11:59 11:59 11:59 11:59 Intake Total 1283 / 1283 Balance 1283 / 1283 Weight 254 lb 5 oz
--- NOTE | 2018-10-11 12:11 | Consult Report ---
History of Present Illness Consult date: 10/11/18 (@ 1030 am) Consult reason: shortness of breath Chief complaint: SOB, elevated troponin History of present illness: This is a 48-year-old female who presented to the emergency department with complaints of shortness of breath. She states that her shortness of breath started 3 days ago. The patient reports that for the last 3 days she has just not felt well. She is having shortness of breath at rest and with exertion. It is worse with exertion. It does improve with rest. She does report to feeling a tightness in the center of her chest. She states that this has been present for 3 days as well. She states that she is a little bit nauseated. She states that she just does not feel good. 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 She also reports that since the shortness breath started she has also been tachycardic with her heart rate over 100. She denies any fever chills vomiting diarrhea PND. She does complain of some orthopnea. She denies any lower extremity edema. [facility] History Medical History: Reports:: Anxiety, Depression, Hyperlipidemia, Hypertension, Palpitations Denies:: Diabetes Mellitus Type 1, Diabetes Mellitus Type 2 Have you ever received a pneumonia vaccine?: No Have you received a flu vaccine this season?: No Other Medical History: Reports: Arthritis, Fibromyalgia Laterality Cases: Bilateral: Carpal Tunnel Release, Tonsillectomy Other Surgeries: Yes: (x2), Hernia Repair, Hysterectomy-Partial, Other (carpel kayla) Amputation: No Fractures: No - *Social History Educational Level: Completed College Smoking Status: Never smoker Alcohol Intake: never Substance Use Type: denies use Occupational Status: employed Housing: house Travel in the last 8 weeks: Inside the [facility] - Psychiatric History Expresses thoughts of harming self/others: None Suicide Plan Description: No Plan Pschychiatric History:: Reports:: Anxiety, Depression *Family Hx:: Thyroid Disorder, Cancer, Coronary Artery Disease, Diabetes Meds Home Medications Medication Instructions Recorded Confirmed Type famotidine 20 mg tablet 20 mg PO QHS 11/14/17 10/10/18 History tizanidine 4 mg capsule 8 mg PO QHS cap 11/14/17 10/10/18 History Cholecalciferol (Vitamin D3) 2,000 unit PO DAILY 01/31/18 10/10/18 History [Vitamin D3] Magnesium 250 mg PO DAILY 01/31/18 10/10/18 History Vitamin E 1,000 unit PO DAILY 01/31/18 10/10/18 History Duloxetine HCl [Cymbalta] 60 mg PO BID 08/16/18 10/10/18 History Linaclotide [Linzess] 72 mcg PO QAM 08/16/18 10/10/18 History Losartan/Hydrochlorothiazide 1 tab PO DAILY 08/16/18 10/10/18 History [Hyzaar 100-25 Tablet] Omeprazole [Omeprazole 20mg 20 mg PO DAILY 08/16/18 10/10/18 History Capsule] Allergies Allergy/AdvReac Type Severity Reaction Status Date / Time azithromycin Allergy Mild Verified 10/10/18 21:58 [From ZITHROMAX Z-NASIR] morphine [MORPHINE] Allergy Mild Verified 10/10/18 21:58 Review of Systems - Review of Systems Review of systems:: pertinent systems reviewed and negative unless documented below - Constitutional Reports fatigue, Reports lack of energy - *Cardiovascular Reports chest pain, Reports chest pain at rest, Reports shortness of breath, Reports shortness of breath with activity, Reports rapid, pounding, or irregular heartbeat, Reports fast heart rate - *Respiratory Reports cough, Reports shortness of breath, Reports shortness of breath with activity, Reports wheezing - *Neurologic Denies seizure-like activity Exam Vital signs and Labs for Last 24 Hours: Temp Pulse Resp BP Pulse Ox 98.4 F 128 H 18 152/75 H 92 L 10/11/18 08:00 10/11/18 08:00 10/11/18 08:00 10/11/18 08:00 10/11/18 08:00 Laboratory Results - last 24 hr 10/10/18 22:00: WBC 9.4, RBC 4.90, Hgb 14.2, Hct 44.9, MCV 91.7, MCH 29.0, MCHC 31.7 L, RDW 13.6, Plt Count 378, MPV 7.0 L, Neut % (Auto) 70.4, Lymph % (Auto) 21.9, [place] % (Auto) 4.6, Eos % (Auto) 2.4, Baso % (Auto) 0.6, Neut # (Auto) 6.6, Lymph # (Auto) 2.1, [place] # (Auto) 0.4, Eos # (Auto) 0.2, Baso # (Auto) 0.1 10/10/18 22:00: Sodium 141, Potassium 3.7, Chloride 106, Carbon Dioxide 26, Anion Gap 12.7, BUN 12, Creatinine 0.97, Estimated Creat Clear 127, Estimated GFR 61, Est GFR ( Amer) 74, Glucose 115 H, Calcium 8.7, Total Bilirubin 0.5, AST 13 L, ALT 26, Alkaline Phosphatase 47, Total Protein 6.9, Albumin 3.2 L , Globulin 3.7 H, Albumin/Globulin Ratio 0.9 L 10/10/18 22:00: Lactate 0.8 10/10/18 22:00: B-Natriuretic Peptide 455 H 10/11/18 00:00: Troponin I 0.07 H 10/11/18 00:00: ESR 32 H 10/11/18 00:00: Mycoplasma pneumon IgM Non-reactive 10/11/18 03:25: Troponin I 0.07 H 10/11/18 05:50: WBC 10.0, RBC 4.62, Hgb 13.6, Hct 42.7, MCV 92.4, MCH 29.5, MCHC 31.9, RDW 13.6, Plt Count 355, MPV 7.5, Neut % (Auto) 92.7 H, Lymph % (Auto) 5.8 L, [place] % (Auto) 1.2 L, Eos % (Auto) 0.1, Baso % (Auto) 0.2, Neut # (Auto) 9.3 H, Lymph # (Auto) 0.6 L, [place] # (Auto) 0.1, Eos # (Auto) 0.0, Baso # (Auto) 0.0, Total Counted 100, Neutrophils % (Manual) 97 H, Lymphocytes % (Manual) 3 L, Platelet Estimate Normal, RBC Morphology Normal 10/11/18 05:50: Sodium 140, Potassium 3.8, Chloride 106, Carbon Dioxide 25, Anion Gap 12.8, BUN 12, Creatinine 1.03 H, Estimated Creat Clear 52, Estimated GFR 57 L, Est GFR ( Amer) 69, Glucose 154 H D, Calcium 8.6, Magnesium 1.8, Troponin I 0.05, Triglycerides 63, Cholesterol 183, LDL Cholesterol 96, VLDL Cholesterol 13, HDL Cholesterol 74, Cholesterol/HDL Ratio 2.5 I & O for Last 24 hours: Intake & Output 10/08/18 10/09/18 10/10/18 10/11/18 23:59 23:59 23:59 23:59 Intake Total 1283 / 1283 Balance 1283 / 1283 Weight 250 lb 254 lb 5 oz Radiology Reports for the Last 24 Hours: CXR shows Congestive heart failure with interstitial edema. - Constitutional no acute distress, morbidly obese, cooperative - *Routine HEENT Exam Head: Present: normocephalic, atraumatic Eye: Present: EOMI, PERRL ENT: Present: mucous membranes moist - *Routine Neck Exam Present: supple, full ROM, normal carotid upstroke. Absent: JVD, carotid bruit, lymphadenopathy - *Routine Respiratory Exam Present: CTA bilaterally - *Routine Cardiovascular Exam Present: Normal S1, Normal S2, tachycardia. Absent: murmur, gallop, rubs - *Routine Abdominal Exam Present: soft, normoactive bowel sounds. Absent: tenderness, distended - *Routine Extremities Exam Present: full ROM, pulses intact. Absent: cyanosis, clubbing, edema - *Routine Skin Exam Present: warm. Absent: erythema, rash - *Routine Neurological Exam Present: alert, oriented X3, CN II-XII intact. Absent: sensory deficit, motor deficit - Routine Psychiatric Exam Present: normal affect, normal thought process Assessment and Plan (1) Non-ST elevation myocardial infarction (NSTEMI) Current visit: Yes Status: Acute Category: Medical Code(s): I21.4 - Non-ST elevation (NSTEMI) myocardial infarction (2) Shortness of breath Current visit: Yes Status: Acute Category: Medical Code(s): R06.02 - Short ness of breath (3) Atypical angina Current visit: Yes Status: Acute Category: Medical Code(s): I20.8 - Other forms of angina pectoris (4) Congestive heart failure Current visit: Yes Status: Acute Category: Medical Code(s): I50.9 - Heart failure, unspecified (5) Community acquired pneumonia Current visit: Yes Status: Acute Qualifiers: Laterality: right Lung location: lower lobe of lung Qualified Code(s): J18.1 - Lobar pneumonia, unspecified organism Category: Medical Code(s): J18.9 - Pneumonia, unspecified organism (6) Hyperlipidemia Current visit: No Status: Chronic Category: Medical Code(s): E78.5 - Hyperlipidemia, unspecified (7) Morbid obesity Current visit: Yes Status: Chronic Category: Medical Code(s): E66.01 - Morbid (severe) obesity due to excess calories (8) Hypertension Current visit: Yes Status: Chronic Qualifiers: Hypertension type: essential hypertension Qualified Code(s): I10 - Essential (primary) hypertension Category: Medical Code(s): I10 - Essential (primary) hypertension (9) Tachycardia Current visit: Yes Status: Acute Category: Medical Code(s): R00.0 - Tachycardia, unspecified - Assessment and plan all Dx Assessment and Plan for all problems:: Plan: 1. The patient was admitted to the hospital with shortness of breath and pneumonia. She is being treated with antibiotics per her primary care provider. 2. The patient did have a bump in her troponin at 0.07 consistent with a non-ST elevation myocardial infarction. Her shortness of breath is most likely atypical angina. She does have hypertension and hyperlipidemia. Her maternal grandmother did have an PA. Given her elevated troponin and atypical angina we will plan to proceed with left cardiac catheterization to evaluate for coronary artery disease. 3. The patient's chest area does show congestive heart failure with interstitial edema. At the time of her left cardiac catheterization will also complete a right cardiac catheterization to evaluate her intracardial pressures. 4. The patient has been educated on the risks and benefits of cardiac catheterization. Patient verbalizes understanding and is agreeable in proceeding with the procedure. 5. We will get an echocardiogram to evaluate her LV function. 6. The patient is tachycardic with a heart rate in the 120s-130s. We will start her on carvedilol 6.25 mg p.o. twice daily for better heart rate control. 7. The patient's blood pressure is also elevated. The carvedilol will help to improve her blood pressure. 8. The patient is on atorvastatin as well for blood pressure control. 9. Given her congestive heart failure we will stop her IV fluids. Start Lasix 40 mg IV every 8 hours. 10. Her LDL goal is less than 100. Her LDL is currently 96. 11. Weight loss is highly advised and counseled. 12. BMP in the morning. 13. Further recommendations will be made pending the patient's response to treatment following her echocardiogram and left and right cardiac catheterization later today. Thank you for the opportunity help to spend care of this patient.
[2018-10-12 06:54] LABS: Basophils # 0.1 K/mm3 (0-0.2); Basophils % 0.4 % (0.1-2.0); Eosinophils # 0.2 K/mm3 (0.0-0.4); Eosinophils % 1.6 % (0.1-12.0); Hemoglobin 14.5 g/dL (12.2-16.2); Lymphocytes # 2.9 K/mm3 (0.7-4.5); Lymphocytes % 22.3 % (10-50); Mean Corpuscular HGB Conc 32.2 g/dL (31.8-35.4); Mean Corpuscular Hemoglobin 29.8 pg (27.0-31.2); Mean Corpuscular Volume 92.6 fl (81-99); Mean Platelet Volume 7.1 fl (7.4-10.4); Monocytes # 0.6 K/mm3 (0.1-1.0); Monocytes % 4.4 % (1.7-9.3); Neutrophils # 9.2 K/mm3 (1.8-7.8); Neutrophils % 71.3 % (37.0-80.0); Platelet Count 368 K/mm3 (142-424); Red Blood Count 4.86 M/mm3 (4.20-5.40); Red Cell Distribution Width 13.9 % (11.5-17.5); White Blood Count 12.9 K/mm3 (4.8-10.8)
[2018-10-12 07:23] LABS: Anion Gap 17.8 mEq/L (5-15); Calcium 9.3 mg/dL (8.5-10.1)
[2018-10-12 07:25] LABS: Potassium 3.8 mmoL/L (3.5-5.1)
--- NOTE | 2018-10-12 09:26 | Progress Note ---
Internal Medicine - PN: Subj *Date: 10/12/18 *Time: 08:00 Exam Vital signs and Labs for Last 24 Hours: Temp Pulse Resp BP Pulse Ox 97.7 F 104 H 20 104/64 L 97 10/12/18 08:00 10/12/18 08:00 10/12/18 08:00 10/12/18 08:00 10/12/18 08:00 Laboratory Results - last 24 hr 10/11/18 16:40: ABG O2 Sat (Measured) 75.6 L, POC VBG O2 Sat (Maurilio) 78.3 10/12/18 06:40: WBC 12.9 H D, RBC 4.86, Hgb 14.5, Hct 45.0, MCV 92.6, MCH 29.8, MCHC 32.2, RDW 13.9, Plt Count 368, MPV 7.1 L, Neut % (Auto) 71.3, Lymph % (Auto) 22.3, [place] % (Auto) 4.4, Eos % (Auto) 1.6, Baso % (Auto) 0.4, Neut # (Auto) 9.2 H, Lymph # (Auto) 2.9, [place] # (Auto) 0.6, Eos # (Auto) 0.2, Baso # (Auto) 0.1 10/12/18 06:40: Sodium 140, Potassium 3.8, Chloride 98, Carbon Dioxide 28, Anion Gap 17.8 H, BUN 16 D, Creatinine 1.00, Estimated Creat Clear 51, Estimated GFR 59, Est GFR ( Amer) 71, Glucose 104, Calcium 9.3 I & O for Last 24 hours: Intake & Output 10/09/18 10/10/18 10/11/18 10/12/18 11:59 11:59 11:59 11:59 Intake Total 1283 / 1283 1547 / 1547 Balance 1283 / 1283 1547 / 1547 Weight 254 lb 5 oz 253 lb 1 oz - *Routine HEENT Exam Head: Present: normocephalic Eye: Present: PERRL ENT: Present: mucous membranes moist - *Routine Neck Exam Present: supple. Absent: lymphadenopathy - *Routine Respiratory Exam Present: wheezes, diminished air movement - *Routine Cardiovascular Exam Present: tachycardia - *Routine Abdominal Exam Present: soft, normoactive bowel sounds. Absent: tenderness - *Routine Extremities Exam Present: full ROM. Absent: cyanosis, clubbing, edema - *Routine Skin Exam Present: warm. Absent: rash - *Routine Neurological Exam Present: alert, oriented X3 - Routine Psychiatric Exam Present: normal affect Assessment and Plan (1) Non-ST elevation myocardial infarction (NSTEMI) Current visit: Yes Status: Acute Category: Medical Code(s): I21.4 - Non-ST elevation (NSTEMI) myocardial infarction (2) Shortness of breath Current visit: Yes Status: Acute Category: Medical Code(s): R06.02 - Shortness of breath (3) Atypical angina Current visit: Yes Status: Acute Category: Medical Code(s): I20.8 - Other forms of angina pectoris (4) Congestive heart failure Current visit: Yes Status: Acute Category: Medical Code(s): I50.9 - Heart failure, unspecified (5) Community acquired pneumonia Current visit: Yes Status: Acute Qualifiers: Laterality: right Lung location: lower lobe of lung Qualified Code(s): J18.1 - Lobar pneumonia, unspecified organism Category: Medical Code(s): J18.9 - Pneumonia, unspecified organism (6) Hyperlipidemia Current visit: No Status: Chronic Category: Medical Code(s): E78.5 - Hyperlipidemia, unspecified (7) Morbid obesity Current visit: Yes Status: Chronic Category: Medical Code(s): E66.01 - Morbid (severe) obesity due to excess calories (8) Hypertension Current visit: Yes Status: Chronic Qualifiers: Hypertension type: essential hypertension Qualified Code(s): I10 - Essential (primary) hypertension Category: Medical Code(s): I10 - Essential (primary) hypertension (9) Tachycardia Current visit: Yes Status: Acute Category: Medical Code(s): R00.0 - Tachycardia, unspecified - Assessment and plan all Dx Assessment and Plan for all problems:: rounded with roger all orders per roger ct chest r/o pe
--- NOTE | 2018-10-12 10:40 | Progress Note ---
<Milla Escalona - Last Filed: 10/12/18 10:37> Subjective Date: 10/12/18 Time: 10:15 Principal diagnosis: SOB Interval history: This is a 48-year-old white female who presented to the emergency department with complaints of shortness of breath. Her chest x-ray showed congestive heart failure. She was extremely short of and she was having orthopnea. She was also nauseated. Her heart rate had been elevated since her shortness of breath started. The patient did undergo left and right cardiac catheterization yesterday secondary to her symptoms and chest x-ray showing new onset congestive heart failure. Her left and right cardiac catheterization showed normal coronary arteries, normal EF and essentially normal LVEDP. She was being diuresed with IV Lasix. Her heart rate remains elevated today. She still states that it feels like her heart is racing all the time. No chest pain or pressure. No fever, chills, vomiting, or diarrhea. Exam Vital signs and Labs for Last 24 Hours: Temp Pulse Resp BP Pulse Ox 97.7 F 104 H 20 104/64 L 97 10/12/18 08:00 10/12/18 08:00 10/12/18 08:00 10/12/18 08:00 10/12/18 08:00 Laboratory Results - last 24 hr 10/11/18 16:40: ABG O2 Sat (Measured) 75.6 L, POC VBG O2 Sat (Maurilio) 78.3 10/12/18 06:40: WBC 12.9 H D, RBC 4.86, Hgb 14.5, Hct 45.0, MCV 92.6, MCH 29.8, MCHC 32.2, RDW 13.9, Plt Count 368, MPV 7.1 L, Neut % (Auto) 71.3, Lymph % (Auto) 22.3, [place] % (Auto) 4.4, Eos % (Auto) 1.6, Baso % (Auto) 0.4, Neut # (Auto) 9.2 H, Lymph # (Auto) 2.9, [place] # (Auto) 0.6, Eos # (Auto) 0.2, Baso # (Auto) 0.1 10/12/18 06:40: Sodium 140, Potassium 3.8, Chloride 98, Carbon Dioxide 28, Anion Gap 17.8 H, BUN 16 D, Creatinine 1.00, Estimated Creat Clear 51, Estimated GFR 59, Est GFR ( Amer) 71, Glucose 104, Calcium 9.3 I & O for Last 24 hours: Intake & Output 10/09/18 10/10/18 10/11/18 10/12/18 23:59 23:59 23:59 23:59 Intake Total 1931 898 / 898 Balance 19318 / 898 Weight 250 lb 261 lb 15.993 oz 253 lb 1 oz Narrative: Telemetry strip shows sinus rhythm with a rate of 105. - Constitutional no acute distress, morbidly obese, cooperative - *Routine HEENT Exam Head: Present: normocephalic, atraumatic Eye: Present: EOMI, PERRL ENT: Present: mucous membranes moist - *Routine Neck Exam Present: supple, full ROM, normal carotid upstroke. Absent: JVD, carotid bruit, lymphadenopathy - *Routine Respiratory Exam Present: wheezes (Tory wheezing noted in the bases) - *Routine Cardiovascular Exam Present: RRR, Normal S1, Normal S2. Absent: murmur, gallop, rubs - *Routine Abdominal Exam Present: soft, normoactive bowel sounds. Absent: tenderness, distended - *Routine Extremities Exam Present: full ROM, pulses intact. Absent: cyanosis, clubbing, edema - *Routine Skin Exam Present: warm. Absent: erythema, rash - *Routine Neurological Exam Present: alert, oriented X3, CN II-XII intact. Absent: sensory deficit, motor deficit Progress Note: A&P (1) Shortness of breath Status: Acute Current Visit: Yes (2) Tachycardia Status: Acute Current Visit: Yes (3) Congestive heart failure Status: Acute Current Visit: Yes (4) Community acquired pneumonia Status: Acute Current Visit: Yes (5) Hyperlipidemia Status: Chronic Current Visit: No (6) Morbid obesity Status: Chronic Current Visit: Yes (7) Hypertension Status: Chronic Current Visit: Yes Assessment and Plan for All Diagnoses:: Plan: 1. The patient was admitted to the hospital with shortness of breath and pneumonia. She did have a chest x-ray that showed congestive heart failure and a slight bump in her troponin. She underwent left cardiac catheterization yesterday and this showed normal coronary arteries. 2. Patient also had a right cardiac catheterization completed which showed essentially normal pressures. She did have a slight elevation in her LVEDP stop IV Lasix and put her on Lasix 20 mg p.o. daily. 3. The patient remains tachycardic today. We will stop her carvedilol and switch her over to metoprolol 50 mg p.o. twice daily to see if this will control her heart rate better. 4. Given her persistent shortness of breath and tachycardia the patient would benefit from a CTA of the chest with PE protocol. 5. Her blood pressure is well controlled. 6. Her LDL goal is less than 100. Her LDL is currently 96. 7. Weight loss is highly. 8. Her echocardiogram is currently pending. 9. Further recommendations were made pending the patient's response to treatment. Thank you for the opportunity help to spend care of this patient. <Vipin Quan - Last Filed: 10/12/18 15:04> Exam Vital signs and Labs for Last 24 Hours: Temp Pulse Resp BP Pulse Ox 97.7 F 104 H 20 104/64 L 97 10/12/18 12:00 10/12/18 12:00 10/12/18 12:00 10/12/18 12:00 10/12/18 12:00 Laboratory Results - last 24 hr 10/11/18 16:40: ABG O2 Sat (Measured) 75.6 L, POC VBG O2 Sat (Maurilio) 78.3 10/12/18 06:40: WBC 12.9 H D, RBC 4.86, Hgb 14.5, Hct 45.0, MCV 92.6, MCH 29.8, MCHC 32.2, RDW 13.9, Plt Count 368, MPV 7.1 L, Neut % (Auto) 71.3, Lymph % (Auto) 22.3, [place] % (Auto) 4.4, Eos % (Auto) 1.6, Baso % (Auto) 0.4, Neut # (Auto) 9.2 H, Lymph # (Auto) 2.9, [place] # (Auto) 0.6, Eos # (Auto) 0.2, Baso # (Auto) 0.1 10/12/18 06:40: Sodium 140, Potassium 3.8, Chloride 98, Carbon Dioxide 28, Anion Gap 17.8 H, BUN 16 D, Creatinine 1.00, Estimated Creat Clear 51, Estimated GFR 59, Est GFR ( Amer) 71, Glucose 104, Calcium 9.3 10/12/18 06:40: B-Natriuretic Peptide 191 H I & O for Last 24 hours: Intake & Output 10/10/18 10/11/18 10/12/18 10/13/18 11:59 11:59 11:59 11:59 Intake Total 1283 / 1283 1547 / 1547 Balance 1283 / 1283 1547 / 1547 Weight 254 lb 5 oz 253 lb 1 oz Progress Note: A&P (1) Shortness of breath Status: Acute Current Visit: Yes (2) Tachycardia Status: Acute Current Visit: Yes (3) Congestive heart failure Status: Acute Current Visit: Yes (4) Community acquired pneumonia Status: Acute Current Visit: Yes (5) Hyperlipidemia Status: Chronic Current Visit: No (6) Morbid obesity Status: Chronic Current Visit: Yes (7) Hypertension Status: Chronic Current Visit: Yes Assessment and Plan for All Diagnoses:: Physician Attestation I was present during all of the critical components of the office visit. The patient was seen, evaluated, and examined by me. I have read the office note that was documented by the scribe and agree with the documentation.
--- NOTE | 2018-10-12 15:41 | Cardiology Report ---
PROCEDURE: 2-D M-mode and color Doppler study INDICATIONS FOR THE TEST: Chest pain COPD Heart Murmur Tobacco Smoking Palpitations+ Fatigue+ Syncope+ Edema+ Hypertension+Diabetes Mellitus Rheumatic Fever SOB+WYATT+Obesity+Hyperlipidemia+ Family History HD+ Additional History Pneumonia, palpitations, chest fullness, dizziness, near syncope PATIENT INFORMATION HEIGHT: 62 WEIGHT: 254 GENDER: Female B/P: 153/96 2-D/M-MODE INTERPRETATION: 2-D MEASUREMENTS OBSERVED VALUES IN CMS Right Ventricular Dimension (RVDd) 2.5 Interventricular Septum (Thickness)(IVsd) 0.9 Left Ventricular Internal Dimensions(LVIDd) 4.6 Left Ventricular Posterior Wall (Thickness)(LVPWd) 0.9 Aortic Root 3.0 Aortic Cusp Separation 2.4 Left Atrial Dimensions (LAD) 3.9 2D 1. Left atrium is mildly enlarged, left ventricle is normal size, visually estimated ejection fraction approximately 40-45%, left ventricle is globally hypokinetic. 2. The right atrium and right ventricle are normal size and contractility. 3. The aortic valve is minimally thickened and fibrosed. 4. The mitral and tricuspid valve leaflets are minimally thickened. 5. The pulmonic valve is poorly present. 6. No significant pericardial effusion noted. DOPPLER INTERROGATION: Doppler interrogation of the aortic, mitral and tricuspid valvular presence of moderate mitral and mild tricuspid regurgitation, the mitral inflow velocities mildly increased but there is no obvious mitral stenosis. Tricuspid regurgitation jet velocity is inadequate for calculation of the right ventricular systolic pressure. Diastolic parameters are inconclusive. CONCLUSION: 1. Mildly enlarged left atrium, normal left ventricular size, visually estimated ejection fraction of 40-45%, left ventricle is globally hypokinetic, diastolic parameters are inconclusive. 2. The mitral inflow velocities mildly increased, there is no obvious mitral stenosis, there is moderate mitral regurgitation. 3. Mild tricuspid regurgitation, tricuspid and jet velocity is inadequate for calculation of the right ventricular systolic pressure. 4. No significant pericardial effusion noted.
[2018-10-13 06:13] LABS: Basophils # 0.1 K/mm3 (0-0.2); Basophils % 0.5 % (0.1-2.0); Eosinophils # 0.1 K/mm3 (0.0-0.4); Hematocrit 49.9 % (37.0-47.0); Hemoglobin 15.6 g/dL (12.2-16.2); Lymphocytes # 2.1 K/mm3 (0.7-4.5); Lymphocytes % 22.7 % (10-50); Mean Corpuscular HGB Conc 31.2 g/dL (31.8-35.4); Mean Corpuscular Hemoglobin 29.1 pg (27.0-31.2); Mean Corpuscular Volume 93.3 fl (81-99); Mean Platelet Volume 7.2 fl (7.4-10.4); Monocytes # 0.6 K/mm3 (0.1-1.0); Monocytes % 5.9 % (1.7-9.3); Neutrophils # 6.6 K/mm3 (1.8-7.8); Platelet Count 366 K/mm3 (142-424); Red Blood Count 5.35 M/mm3 (4.20-5.40); Red Cell Distribution Width 13.7 % (11.5-17.5); White Blood Count 9.5 K/mm3 (4.8-10.8)
[2018-10-13 06:27] LABS: Anion Gap 12.8 mEq/L (5-15); Calcium 9.5 mg/dL (8.5-10.1); Potassium 3.8 mmoL/L (3.5-5.1)
--- NOTE | 2018-10-13 08:44 | Progress Note ---
Subjective Date: 10/13/18 Time: 08:41 Principal diagnosis: SOB Interval history: 48 yo WF in bed in NAD. Telemetry shows improved rate control. BP has trended down on increased metoprolol. Exam Vital signs and Labs for Last 24 Hours: Temp Pulse Resp BP Pulse Ox 98.0 F 86 16 106/65 L 97 10/13/18 08:00 10/13/18 08:00 10/13/18 08:00 10/13/18 08:00 10/13/18 08:00 Laboratory Results - last 24 hr 10/12/18 06:40: B-Natriuretic Peptide 191 H 10/13/18 05:35: WBC 9.5 D, RBC 5.35, Hgb 15.6, Hct 49.9 H, MCV 93.3, MCH 29.1, MCHC 31.2 L, RDW 13.7, Plt Count 366, MPV 7.2 L, Neut % (Auto) 70.0, Lymph % (Auto) 22.7, [place] % (Auto) 5.9, Eos % (Auto) 1.0, Baso % (Auto) 0.5, Neut # (Auto) 6.6, Lymph # (Auto) 2.1, [place] # (Auto) 0.6, Eos # (Auto) 0.1, Baso # (Auto) 0.1 10/13/18 05:35: Sodium 138, Potassium 3.8, Chloride 97 L, Carbon Dioxide 32, Anion Gap 12.8, BUN 21 H D, Creatinine 1.13 H, Estimated Creat Clear 45, Estimated GFR 51 L, Est GFR ( Amer) 62, Glucose 93, Calcium 9.5 I & O for Last 24 hours: Intake & Output 10/10/18 10/11/18 10/12/18 10/13/18 11:59 11:59 11:59 11:59 Intake Total 1283 / 1283 2177 / 2177 1240 / 1240 Balance 1283 / 1283 2177 / 2177 1240 / 1240 Weight 254 lb 5 oz 253 lb 1 oz 253 lb 1 oz Microbiology Reports for the Last 24 Hours: Microbiology 10/10/18 22:00 Blood Blood Culture - Preliminary NO GROWTH AFTER 48 HOURS 10/10/18 22:00 Blood Blood Culture - Preliminary NO GROWTH AFTER 48 HOURS - *Routine Respiratory Exam Present: CTA bilaterally. Absent: accessory muscle use, rales, rhonchi, wheezes - *Routine Cardiovascular Exam Present: RRR. Absent: murmur, gallop, rubs Progress Note: A&P (1) Non-ST elevation myocardial infarction (NSTEMI) Status: Acute Current Visit: Yes (2) Shortness of breath Status: Acute Current Visit: Yes (3) Atypical angina Status: Acute Current Visit: Yes (4) Congestive heart failure Status: Acute Current Visit: Yes (5) Community acquired pneumonia Status: Acute Current Visit: Yes (6) Hyperlipidemia Status: Chronic Current Visit: No (7) Morbid obesity Status: Chronic Current Visit: Yes (8) Hypertension Status: Chronic Current Visit: Yes (9) Tachycardia Status: Acute Current Visit: Yes Assessment and Plan for All Diagnoses:: Okay for discharge home from cardiology standpoint. Continue metoprolol 50 mg twice daily for rate control. We will reduce losartan to 50 mg daily due to borderline low blood pressure. Continue Lasix 20 mg twice daily and hydrochlorothiazide 25 mg daily for borderline elevated LVEDP. Follow-up in our office in 1-2 weeks.
--- NOTE | 2018-10-13 09:15 | Discharge Summary ---
General - General Admission date:: 10/11/18 Discharge date: 10/13/18 HPI HPI: this wf has been having Hospital Course Hospital Course: chest x ray:IMPRESSION: Congestive heart failure with interstitial edema echo:CONCLUSION: 1. Mildly enlarged left atrium, normal left ventricular size, visually estimated ejection fraction of 40-45%, left ventricle is globally hypokinetic, diastolic parameters are inconclusive. 2. The mitral inflow velocities mildly increased, there is no obvious mitral stenosis, there is moderate mitral regurgitation. 3. Mild tricuspid regurgitation, tricuspid and jet velocity is inadequate for calculation of the right ventricular systolic pressure. 4. No significant pericardial effusion noted. cta:IMPRESSION: 1. No evidence of pulmonary embolus aortic aneurysm or aortic dissection. 2. Small bilateral pleural effusions with patchy area of groundglass density in the superior segment of the right lower lobe may be due to an area of infiltrate or residual edema 3. Minimal thickening of the pericardium suggesting small pericardial effusion Cardiology consult see note and medication recommendations. Patient is to follow-up 1 week with [facility] and Dr. Urena Objective Vital signs: Temp Pulse Resp BP Pulse Ox 98.0 F 86 16 106/65 L 97 10/13/18 08:00 10/13/18 08:00 10/13/18 08:00 10/13/18 08:00 10/13/18 08:00 no acute distress - *Routine HEENT Exam Head: Present: normocephalic Eye: Present: PERRL ENT: Present: mucous membranes moist - *Routine Respiratory Exam Present: CTA bilaterally, wheezes - *Routine Cardiovascular Exam Present: RRR - *Routine Abdominal Exam Present: soft, normoactive bowel sounds - *Routine Extremities Exam Present: full ROM - *Routine Skin Exam Present: intact - *Routine Neurological Exam Present: alert, oriented X3 - Routine Psychiatric Exam Present: normal affect Results Labs on day of discharge: Labs from last 24 hours 10/13/18 10/13/18 10/12/18 05:35 05:35 06:40 WBC 9.5 D RBC 5.35 Hgb 15.6 Hct 49.9 H MCV 93.3 MCH 29.1 MCHC 31.2 L RDW 13.7 Plt Count 366 MPV 7.2 L Neut % (Auto) 70.0 Lymph % (Auto) 22.7 [place] % (Auto) 5.9 Eos % (Auto) 1.0 Baso % (Auto) 0.5 Neut # (Auto) 6.6 Lymph # (Auto) 2.1 [place] # (Auto) 0.6 Eos # (Auto) 0.1 Baso # (Auto) 0.1 Sodium 138 Potassium 3.8 Chloride 97 L Carbon Dioxide 32 Anion Gap 12.8 BUN 21 H D Creatinine 1.13 H Estimated Creat Clear 45 Estimated GFR 51 L Est GFR ( Amer) 62 Glucose 93 Calcium 9.5 B-Natriuretic Peptide 191 H Preliminary micro results at discharge 10/10/18 22:00 Blood Culture - Preliminary Blood NO GROWTH AFTER 48 HOURS 10/10/18 22:00 Blood Culture - Preliminary Blood NO GROWTH AFTER 48 HOURS - Additional Comments Rounded with Dr. Urena all orders per Romel DS: Diagnosis - Discharge Diagnosis (1) Non-ST elevation myocardial infarction (NSTEMI) Status: Acute (2) Shortness of breath Status: Acute (3) Atypical angina Status: Acute (4) Congestive heart failure Status: Acute (5) Community acquired pneumonia Status: Acute (6) Hyperlipidemia Status: Chronic (7) Morbid obesity Status: Chronic (8) Hypertension Status: Chronic (9) Tachycardia Status: Acute Discharge Plan - Patient Discharge Instructions ACTIVITY: Continue current activity DIET: continue same diet Patient Instructions: DI for Heart Failure, DI for Pneumonia -- Adult, DI for Cardiac Catheterization, DI for Surgical Site Infection - Follow up Plan Follow up with: Lul Urena MD [Emergency Provider] - 1 week Bhargav Philip MD [Staff Physician] - 1 week Disposition: Home, Self-Long Term Medications: Home Medications Medication Instructions Recorded Confirmed Type famotidine 20 mg tablet 20 mg PO HS 11/14/17 10/11/18 History tizanidine 4 mg capsule 8 mg PO HS cap 11/14/17 10/11/18 History Cholecalciferol (Vitamin D3) 2,000 unit PO DAILY 01/31/18 10/10/18 History [Vitamin D3] Magnesium 250 mg PO DAILY 01/31/18 10/10/18 History Vitamin E 1,000 unit PO DAILY 01/31/18 10/10/18 History Duloxetine HCl [Cymbalta] 60 mg PO BID 08/16/18 10/10/18 History Linaclotide [Linzess] 72 mcg PO DAILY 08/16/18 10/11/18 History Losartan/Hydrochlorothiazide 1 tab PO DAILY 08/16/18 10/10/18 History [Hyzaar 100-25 Tablet] Omeprazole [Omeprazole 20mg 20 mg PO DAILY 08/16/18 10/10/18 History Capsule] Furosemide [Lasix 20mg tablet] 20 mg PO BIDL 30 Days #60 tab 10/13/18 Rx Losartan Potassium 50 mg PO DAILY 30 Days #30 tab 10/13/18 Rx Metoprolol Tartrate [Lopressor 50 mg PO BID 30 Days #60 tab 10/13/18 Rx 50mg tablet] hydroCHLOROthiazide [HCTZ 25mg 25 mg PO DAILY 30 Days #30 tab 10/13/18 Rx tab] Prescriptions/Medication Reconciliation: New Duloxetine HCl [Cymbalta 30mg capsule] 60 mg PO BID capsule. hydroCHLOROthiazide [HCTZ 25mg tab] 25 mg PO DAILY 30 Days #30 tab Losartan Potassium 50 mg PO DAILY 30 Days #30 tab Metoprolol Tartrate [Lopressor 50mg tablet] 50 mg PO BID 30 Days #60 tab Acetaminophen [Acetaminophen 325mg tab] 650 mg PO Q4HP PRN tablet PRN Reason: As Needed For Fever Or Pain Furosemide [Lasix 20mg tablet] 20 mg PO BIDL 30 Days #60 tab Continue famotidine 20 mg tablet 20 mg PO HS Linaclotide [Linzess] 72 mcg PO DAILY Vitamin E 1,000 unit PO DAILY Cholecalciferol (Vitamin D3) [Vitamin D3] 2,000 unit PO DAILY Discontinued tizanidine 4 mg capsule 8 mg PO HS cap Magnesium 250 mg PO DAILY Omeprazole [Omeprazole 20mg Capsule] 20 mg PO DAILY Losartan/Hydrochlorothiazide [Hyzaar 100-25 Tablet] 1 tab PO DAILY Duloxetine HCl [Cymbalta] 60 mg PO BID
== END 2018-10-13 10:40 | disposition home or self-care (01) | DRG 280 ==
LOC: ER 21:46 → 2ND 10-11 00:06
PROVIDERS: ADMIT Emergency Medicine; ATTEND Emergency Medicine
DX: Z83.3 Family history of diabetes mellitus; Z79.899 Other long term (current) drug therapy; F41.8 Other specified anxiety disorders; Z82.49 Family history of ischemic heart disease and other diseases of the circulatory system; I21.4 Non-ST elevation (NSTEMI) myocardial infarction; Z88.8 Allergy status to other drugs, medicaments and biological substances; I50.9 Heart failure, unspecified; Z68.43 Body mass index [BMI] 50.0-59.9, adult; I11.0 Hypertensive heart disease with heart failure; E66.01 Morbid (severe) obesity due to excess calories; E78.5 Hyperlipidemia, unspecified; J18.9 Pneumonia, unspecified organism; I25.110 Atherosclerotic heart disease of native coronary artery with unstable angina pectoris
CPT/HCPCS: 36415; 71020; 71046; 71275; 80048; 80053; 80061; 82810; 83605; 83735; 83880; 84484; 85007; 85025; 85651; 86738; 87040; 93005; 93306; 93460; 94640; 94760; 94761; 96365; 96375; 99152; 99153; 99285; C1725; C1769; C1894; J1644; J1956; J2405; Q9967

== ENCOUNTER → 2018-10-18 12:43 | Outpatient (CLI) | payer OTHER, SELFPAY ==
--- NOTE | 2018-10-18 15:18 | XR_ITS ---
XR chest 2V HISTORY: ITS.REASON: cough ORDERING PHYSICIAN: Bhargav Philip MD PATIENT AGE: 48 years COMPARISON: 10/10/2018 FINDINGS: There is cardiomegaly without failure. The CHF has improved compared to the previous exam. There is evidence of old granulomatous disease. IMPRESSION: No acute finding. Interval improvement in CHF
[2018-10-18 16:43] LABS: Anion Gap 15.3 mEq/L (5-15); Blood Urea Nitrogen 20 mg/dL (7-18); Calcium 9.4 mg/dL (8.5-10.1); Carbon Dioxide 29 mmol/L (21.0-32.0); Chloride 98 mmol/L (98-107); Creatinine,Serum 1.01 mg/dL (0.55-1.02); Estimated Glomerular Filt Rate 58 ml/min (>60); Free T4 (Free Thyroxine) 0.99 ng/dl (0.76-1.46); GFR (African American) 70 ML/MIN (>60); Glucose 95 mg/dL (74-106); Potassium 3.3 mmoL/L (3.5-5.1); Sodium 139 mmol/L (136-145); Thyroid Stimulating Hormone 4.22 uIU/ml (0.358-3.740)
== END ==
PROVIDERS: PCP Emergency Medicine; Visit Provider Internal Medicine
DX: E78.5 Hyperlipidemia, unspecified (principal); E66.9 Obesity, unspecified; I10 Essential (primary) hypertension; Z09 Encounter for follow-up examination after completed treatment for conditions other than malignant neoplasm
CPT/HCPCS: 36415; 71046; 80048; 83880; 84439; 84443

== ENCOUNTER → 2018-11-01 08:41 | Outpatient (CLI) | payer OTHER, SELFPAY ==
[2018-11-01 09:06] LABS: Anion Gap 12.1 mEq/L (5-15); Blood Urea Nitrogen 16 mg/dL (7-18); Carbon Dioxide 31 mmol/L (21.0-32.0); Chloride 101 mmol/L (98-107); Creatinine,Serum 1.02 mg/dL (0.55-1.02); Estimated Glomerular Filt Rate 58 ml/min (>60); Potassium 4.1 mmoL/L (3.5-5.1); Sodium 140 mmol/L (136-145)
[2018-11-01 09:07] LABS: Calcium 9.6 mg/dL (8.5-10.1); GFR (African American) 70 ML/MIN (>60); Glucose 93 mg/dL (74-106)
== END ==
PROVIDERS: Visit Provider Internal Medicine
DX: R06.02 Shortness of breath (principal); I50.9 Heart failure, unspecified; I10 Essential (primary) hypertension
CPT/HCPCS: 36415; 80048; 83880

== ENCOUNTER → 2018-11-09 08:26 | Outpatient (CLI) | payer OTHER, SELFPAY ==
[2018-11-09 11:13] LABS: Anion Gap 12.7 mEq/L (5-15); Blood Urea Nitrogen 21 mg/dL (7-18); Carbon Dioxide 31 mmol/L (21.0-32.0); Chloride 100 mmol/L (98-107); Creatinine,Serum 1.19 mg/dL (0.55-1.02); Estimated Glomerular Filt Rate 48 ml/min (>60); GFR (African American) 58 ML/MIN (>60); Glucose 75 mg/dL (74-106); Potassium 3.7 mmoL/L (3.5-5.1); Sodium 140 mmol/L (136-145)
== END ==
PROVIDERS: Urology; Visit Provider Physician Assistant
DX: I50.9 Heart failure, unspecified (principal); R06.02 Shortness of breath; R60.9 Edema, unspecified; E66.9 Obesity, unspecified; E78.5 Hyperlipidemia, unspecified; I10 Essential (primary) hypertension; R53.1 Weakness; R53.83 Other fatigue
CPT/HCPCS: 36415; 80048; 83880

== ENCOUNTER 2019-02-06 22:05 | Observation (INO) ==
[2019-02-06 22:25] LABS: Basophils % 0.4 % (0.1-2.0); Eosinophils # 0.3 K/mm3 (0.0-0.4); Eosinophils % 3.4 % (0.1-12.0); Hematocrit 42.9 % (37.0-47.0); Hemoglobin 14.1 g/dL (12.2-16.2); Lymphocytes % 22.9 % (10-50); Mean Corpuscular HGB Conc 32.9 g/dL (31.8-35.4); Mean Corpuscular Hemoglobin 30.1 pg (27.0-31.2); Mean Corpuscular Volume 91.5 fl (81-99); Mean Platelet Volume 6.6 fl (7.4-10.4); Monocytes # 0.7 K/mm3 (0.1-1.0); Monocytes % 7.8 % (1.7-9.3); Neutrophils # 5.9 K/mm3 (1.8-7.8); Neutrophils % 65.7 % (37.0-80.0); Platelet Count 390 K/mm3 (142-424); Red Blood Count 4.69 M/mm3 (4.20-5.40); Red Cell Distribution Width 13.5 % (11.5-17.5); White Blood Count 8.9 K/mm3 (4.8-10.8)
[2019-02-06 22:45] LABS: Blood Urea Nitrogen 29 mg/dL (7-18); Carbon Dioxide 32 mmol/L (21.0-32.0); Chloride 101 mmol/L (98-107); Glucose 95 mg/dL (74-106); Sodium 138 mmol/L (136-145)
--- NOTE | 2019-02-07 00:12 | Emergency Department Note ---
ED Disposition Clinical Impression: Renal insufficiency Chest pain Qualifiers: Chest pain type: precordial pain Qualified Code(s): R07.2 - Precordial pain Obesity Qualifiers: Obesity type: due to excess calories Obesity classification: adult class 3 (BMI >= 40) Serious obesity comorbidity presence: with serious comorbidity Body mass index: BMI 45.0-49.9 Qualified Code(s): E66.01 - Morbid (severe) obesity due to excess calories; Z68.42 - Body mass index (BMI) 45.0-49.9, adult Disposition: Admitted as Observation Condition on Discharge: Good Referrals: Lul Urena MD [Primary Care Provider] - - Critical Care Critical Care Time: No Attestation: On 02/06/19, the high probability of a clinically significant, sudden or life threatening deterioration of the following system(s) required my full and direct attention, intervention and personal management. The time I documented below is in addition to time spent performing reported procedures but includes the foll owing listed in this critical care notation. Medical Decision Making - Medical Records Medical records reviewed: Yes: I reviewed the patient's medical records. - [place] Inquiry Pt receiving controlled substance: No Vital Signs: 02/06/19 22:05 02/06/19 23:03 02/07/19 00:05 Temperature 97.5 F L 97.8 F Temperature Source Oral Oral Pulse Rate [Right Brachial] 85 75 57 L Respiratory Rate 14 16 18 Blood Pressure [Right Arm] 136/75 97/56 L 105/59 L Blood Pressure Mean [Right Arm] 95 69 74 Blood Pressure Source [Right Arm] Automatic Cuff Automatic Cuff Blood Pressure Position [Right Arm] Sitting Sitting 02 Sat by Pulse Oximetry 98 98 100 Oxygen Delivery Method Room Air - Lab Data Lab results reviewed: Yes: I reviewed the patient's lab results. Lab Results 02/06/19 22:15: WBC 8.9, RBC 4.69, Hgb 14.1, Hct 42.9, MCV 91.5, MCH 30.1, MCHC 32.9, RDW 13.5, Plt Count 390, MPV 6.6 L, Neut % (Auto) 65.7, Lymph % (Auto) 22.9, [place] % (Auto) 7.8, Eos % (Auto) 3.4, Baso % (Auto) 0.4, Neut # (Auto) 5.9, Lymph # (Auto) 2.0, [place] # (Auto) 0.7, Eos # (Auto) 0.3, Baso # (Auto) 0.0 02/06/19 22:15: Sodium 138, Potassium 4.0, Chloride 101, Carbon Dioxide 32, Anion Gap 9.0, BUN 29 H, Creatinine 1.17 H, Estimated Creat Clear 46, Estimated GFR 49 L, Est GFR ( Amer) 59, Glucose 95, Calcium 9.0, Troponin I < 0.02 02/06/19 22:15: B-Natriuretic Peptide < 5 Result diagrams: 02/06/19 22:15 02/06/19 22:15 Orders (Tests/Meds): ED MEDICATIONS Discontinued Medications Generic Name Dose Route Start Last Admin Trade Name Freq PRN Reason Stop Dose Admin Aspirin 324 mg 02/06/19 22:11 02/06/19 22:18 Aspirin 81mg Chewable Tablet PO 02/06/19 22:12 324 mg ONCE ONE Administration Ketorolac Tromethamine 30 mg 02/06/19 22:11 02/06/19 22:18 Toradol 30mg/Ml Vial IV 02/06/19 22:12 30 mg ONCE ONE Administration ORDERS Category Date Time Status XR chest 2V Stat Exams 02/06/19 22:10 Taken ECG Request by /Itz Stat Y 02/06/19 22:10 Ordered - Radiology Data #1 Image(s): Chest Image Reviewed: Yes I reviewed the patient's radiology image Preliminary Findings: Abnormal (cm) - ECG Data Tracing #1 Normal Sinus Rhythm: Yes Ischemic changes: non-specific ST-T wave changes Chest Pain HPI - General Chief Complaint: Chest Pain Stated Complaint: chest pain Time Seen by Provider: 02/06/19 23:00 Mode of Arrival: Ambulatory Source of Information: Patient, Medical Record Limitations: No Limitations Description of Symptoms (Recalled from ER Triage Doc. by RN): pt here with cp that started this morning. Reports it feels like sharp intermittent pains under her left breast with no radiation. reports associated nausea, and sob with it. 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 - History of Present Illness HPI narrative: pt with chest pain and sob worse over the last few days - has had card issues in past MD complaint: chest pain indicative of cardiac Duration: intermittent Pain location: substernal Severity: moderate Quality: sharp Associated symptoms: dyspnea Risk Factors for CAD: Family Hx of CAD Treatments prior to or on arrival for Cardiac Chest Pain: none - JEANINE Score for Non-Stemi Age of Patient: 40-49 years old Heart Rate: 70-89 bpm Systolic Blood Pressure: 120-139 mmhg Serum Creatinine: 0.80-1.19 mg/dl CHF [place] Class: I-No CHF Other Risk Factors: None Non-Stemi Risk Score: 75 - Related Data Prior Cardiac Testing/Procedures: Cardiac Angiogram On Oral Contraceptives: No Home Medications Medication Instructions Recorded Confirmed famotidine 20 mg tablet 20 mg PO HS 11/14/17 02/06/19 Cholecalciferol (Vitamin D3) 2,000 unit PO DAILY 01/31/18 02/06/19 [Vitamin D3] Vitamin E 1,000 unit PO DAILY 01/31/18 02/06/19 omega-3 fatty acids 1,000 mg 1,000 mg PO DAILY 10/18/18 02/06/19 capsule Duloxetine HCl [Cymbalta 30mg 60 mg PO BID 02/06/19 02/06/19 capsule] Furosemide [Furosemide 40MG tAB] 40 mg PO BID 02/06/19 02/06/19 Ibuprofen [Ibuprofen 600mg 600 mg PO TID 02/06/19 02/06/19 Tablet] Olmesartan Medoxomil 20 mg PO DAILY 02/06/19 02/06/19 Spironolactone 100 mg PO DAILY 02/06/19 02/06/19 Previous Rx's Medication Instructions Recorded Acetaminophen [Acetaminophen 325mg 650 mg PO Q4HP PRN tab 10/13/18 tab] linaclotide 72 mcg capsule 72 mcg PO DAILY #30 cap 10/18/18 tizanidine 4 mg capsule 8 mg PO QHS PRN #60 cap 11/01/18 ondansetron HCl 8 mg tablet 8 mg PO BID PRN #30 tab 12/06/18 Allergies Allergy/AdvReac Type Severity Reaction Status Date / Time methylprednisolone Allergy Intermediate Unknown Verified 02/06/19 22:11 [From Solu-Medrol] allergy reaction azithromycin Allergy Mild Verified 12/12/18 00:21 [From ZITHROMAX Z-NASIR] morphine [MORPHINE] Allergy Mild Verified 12/12/18 00:21 [facility] History - Hepatitis A Screen Drug use history?: No High risk sexual behaviors?: No History of sexually transmitted infection?: No Currently employed?: No Childcare worker?: No Do you have indoor plumbing?: Yes Do you have electricity?: Yes Attestation statement:: This patient has been screened for Hepatitis A risk factors. I have reviewed the patient's past medical history: Yes Medical History: Reports:: Anxiety, Depression, Hyperlipidemia, Hypertension, Palpitations Denies:: Cancer, Diabetes Mellitus Type 1, Diabetes Mellitus Type 2, MRSA Other Medical History: Reports: Arthritis, Fibromyalgia Comment: PTSD, Chronic constipation, Carpal tunnel Laterality Cases: Bilateral: Carpal Tunnel Release, Tonsillectomy Other Surgeries: Yes: , Hernia Repair, Hysterectomy-Partial, Other Amputation: No Fractures: No Comment: L4 & L5 infusion, gallbladder - Social History Smoking Status: Never smoker Alcohol Intake: never Substance Use Type: denies use Occupational Status: employed Housing: house Comment: [place] - Psychiatric History Expresses thoughts of harming self/others: None Suicide Plan Description: No Plan Pschychiatric History:: Reports:: Anxiety, Depression Family Hx:: Thyroid Disorder, Cancer, Coronary Artery Disease, Diabetes ROS Obtained: Yes All systems reviewed & no additional complaints - Constitutional Constitutional: Denies fever(s) - Eyes Eyes: Denies change in vision - ENT Ears, Nose, Mouth, and Throat: Denies sore throat - Cardiovascular Cardiovascular: Reports chest pain, Reports dyspnea - Respiratory Respiratory: No cough - Gastrointestinal Gastrointestingal: Denies: abdominal pain - Genitourinary Female Genitourinary: Denies flank pain - Musculoskeletal Musculoskeletal: Denies back pain - Integumentary/Breasts Skin/Breast: Denies rash - Neurologic Neurologic: Denies memory loss Physical Exam - General General appearance: alert, obese - Head Head exam: normocephalic - Eye Eye exam: Present: PERRL, EOMI, scleral icterus - ENT ENT exam: Present: mucous membranes dry - Neck Neck exam: Present: trachea midline - Respiratory Respiratory exam: Present: normal lung sounds bilaterally. Absent: respiratory distress - Cardiovascular Cardiovascular exam: Present: regular rate, systolic murmur, +S4 - Abdominal Exam Abdominal exam: Present: soft - Extremities Exam Extremities exam: Absent: calf tenderness - Neurological Exam Neurological exam: Present: alert, oriented X3, CN II-XII intact - Psychiatric Psychiatric exam: Present: normal affect - Skin Skin exam: Absent: rash
[2019-02-07 03:06] LABS: Thyroid Stimulating Hormone 1.76 uIU/ml (0.358-3.740)
[2019-02-07 06:32] LABS: Basophils # 0.1 K/mm3 (0-0.2); Basophils % 0.6 % (0.1-2.0); Eosinophils # 0.3 K/mm3 (0.0-0.4); Eosinophils % 3.5 % (0.1-12.0); Hematocrit 41.9 % (37.0-47.0); Hemoglobin 13.8 g/dL (12.2-16.2); Lymphocytes # 2.6 K/mm3 (0.7-4.5); Lymphocytes % 28.4 % (10-50); Mean Corpuscular HGB Conc 32.9 g/dL (31.8-35.4); Mean Corpuscular Volume 91.2 fl (81-99); Mean Platelet Volume 6.7 fl (7.4-10.4); Monocytes # 0.7 K/mm3 (0.1-1.0); Monocytes % 7.3 % (1.7-9.3); Neutrophils # 5.5 K/mm3 (1.8-7.8); Neutrophils % 60.3 % (37.0-80.0); Platelet Count 370 K/mm3 (142-424); Red Blood Count 4.59 M/mm3 (4.20-5.40); Red Cell Distribution Width 13.5 % (11.5-17.5); White Blood Count 9.2 K/mm3 (4.8-10.8)
[2019-02-07 06:55] LABS: Anion Gap 8.8 mEq/L (5-15); Blood Urea Nitrogen 32 mg/dL (7-18); Calcium 8.9 mg/dL (8.5-10.1); Carbon Dioxide 31 mmol/L (21.0-32.0); Chloride 102 mmol/L (98-107); Chol/HDL Ratio 3.6 (1-3.5); Cholesterol 214 mg/dL (140-200); Glucose 87 mg/dL (74-106); HDL Cholesterol 60 mg/dL (29-89); LDL Cholesterol 121 mg/dL (0-130); Potassium 3.8 mmoL/L (3.5-5.1); Sodium 138 mmol/L (136-145); Triglycerides 166 mg/dL (30-200); VLDL Cholesterol 33 mg/dL (0-40)
--- NOTE | 2019-02-07 07:57 | Pharmacy Consult Notes ---
[facility] VTE Monitoring - Patient Demographics Admission date: 02/06/19 Report Date: 02/07/19 Time: 07:57 Allergies/Adverse Reactions: Patient Allergies methylprednisolone [From Solu-Medrol] Allergy (Intermediate, Verified 02/06/19 22:11) Unknown allergy reaction azithromycin [From ZITHROMAX Z-NASIR] Allergy (Mild, Verified 12/12/18 00:21) morphine [MORPHINE] Allergy (Mild, Verified 12/12/18 00:21) Height: 1.57 m Weight: 117.934 kg Patient Problems: Current Active Problems (Updated 02/07/19 @ 00:19 by Lul Urena MD) Chest pain (Acute) Renal insufficiency (Acute) Obesity (Chronic) - VTE Risk Labs: VTE Related Lab Results Hgb 13.8 g/dL (12.2-16.2) 02/07/19 05:46 Hct 41.9 % (37.0-47.0) 02/07/19 05:46 Plt Count 370 K/mm3 (142-424) 02/07/19 05:46 BUN 32 mg/dL (7-18) H 02/07/19 05:46 Creatinine 1.17 mg/dL (0.55-1.02) H 02/07/19 05:46 Estimated Creat Clear 44 mL/min (50-200) 02/07/19 05:46 Was VTE Risk Assessment Performed: Yes VTE Score: 7 VTE Risk Level: Moderate Risk Clinical Trial Participant: No - Prophylaxis VTE Prophylaxis Ordered?: Yes Types of VTE Prophylaxis: TEDS Knee High
--- NOTE | 2019-02-07 08:42 | Consult Report ---
History of Present Illness Consult date: 02/07/19 Requesting physician: Lul Urena Consult reason: chest pain Chief complaint: CP, SOA Additional Medical History:: 1. Obesity 2. Normal coronary arteries by [facility], 10/2018, with elevated troponins secondary to cardiac strain. A. ANGIOGRAPHIC RESULTS: 1. The left main artery normal 2. The left anterior descending artery angiographically normal 3. The circumflex artery is non dominant and angiographically normal 4. The right coronary artery dominant and angiographically normal 5. The FLETCHER ventriculogram reveals 65-70% 6. The left ventricular end-diastolic pressure 13 HEMODYNAMICS: Right atrial pressure is 4 mm Hg. Pulmonary arterial pressure is 32/18 mm Hg. Pulmonary artery occlusion pressure is 14 mm Hg. SATURATIONS: RA is 78 %. PA is 76 %. IMPRESSION: 1. Normal coronary arteries 2. Normal left ventricular systolic function 3. Normal left ventricular end-diastolic pressure and pulmonary capillary wedge pressure 4. Normal pulmonary artery pressure 5. Normal pulmonary artery saturation signifying normal cardiac output index 3. HTN 4. Depression History of present illness: 48 yo WF with 3 days history of increasing SOA with left sided chest pain, non- exertional in nature. Some associated LE edema noted. Relates recent increase in salt intake. She was concerned for "CHF or lung issues since I just got over bronchitis recently." Pt was admitted, troponins normal X 3, EKG normal, CXR showed no evidence of CHF with normal BNP. Recent cardiac cath in 10/2018 showed normal coronaries and LVEF with normal right heart pressures. She has been seen in the outpatient setting over the last 3 months with med adjustment for presumed diastolic dysfunction with successful treatment using diuretics and BP meds. Cardiology consulted for evaluation and recommendations. Preliminary echo this AM shows normal LVEF with mild to moderate MR. MILLAN History Medical History: Reports:: Anxiety, Depression, Hyperlipidemia, Hypertension, Myocardial Infarction, Palpitations Denies:: Cancer, Diabetes Mellitus Type 1, Diabetes Mellitus Type 2, MRSA *Have you ever received a pneumonia vaccine?: No *Have you received a flu vaccine this season?: No Other Medical History: Reports: Arthritis, Fibromyalgia Laterality Cases: Bilateral: Carpal Tunnel Release, Tonsillectomy Other Surgeries: Yes: Cardiac Catheterization, Cholecystectomy, Colonoscopy, C- section, Hernia Repair, Hysterectomy-Partial, Other Amputation: No Fractures: No - *Social History Educational Level: Completed College Smoking Status: Never smoker Alcohol Intake: never Substance Use Type: denies use *Occupational Status:: employed Housing: house *Travel in the last 8 weeks: None - Psychiatric History Expresses thoughts of harming self/others: None Suicide Plan Description: No Plan Pschychiatric History:: Reports:: Anxiety, Depression Family Hx:: Cancer, Diabetes, Heart Attack, Hyperlipidemia, Hypertension, Stroke Meds Home Medications Medication Instructions Recorded Confirmed Type famotidine 20 mg tablet 20 mg PO HS 11/14/17 02/06/19 History Cholecalciferol (Vitamin D3) 2,000 unit PO DAILY 01/31/18 02/06/19 History [Vitamin D3] Vitamin E 1,000 unit PO DAILY 01/31/18 02/06/19 History Acetaminophen [Acetaminophen 325mg 650 mg PO Q4HP PRN tab 10/13/18 02/06/19 Rx tab] linaclotide 72 mcg capsule 72 mcg PO DAILY #30 cap 10/18/18 02/06/19 Rx omega-3 fatty acids 1,000 mg 1,000 mg PO DAILY 10/18/18 02/06/19 History capsule tizanidine 4 mg capsule 8 mg PO QHS PRN #60 cap 11/01/18 02/06/19 Rx ondansetron HCl 8 mg tablet 8 mg PO BID PRN #30 tab 12/06/18 02/06/19 Rx Furosemide [Furosemide 40MG tAB] 40 mg PO BID 02/06/19 02/06/19 History Ibuprofen [Ibuprofen 600mg 600 mg PO TID 02/06/19 02/06/19 History Tablet] Olmesartan Medoxomil 20 mg PO DAILY 02/06/19 02/06/19 History Spironolactone 100 mg PO DAILY 02/06/19 02/06/19 History Duloxetine HCl [Cymbalta] 60 mg PO DAILY 02/07/19 02/07/19 History Metoprolol Tartrate 50 mg PO BID 02/07/19 02/07/19 History Allergies Allergy/AdvReac Type Severity Reaction Status Date / Time methylprednisolone Allergy Intermediate Unknown Verified 02/06/19 22:11 [From Solu-Medrol] allergy reaction azithromycin Allergy Mild Verified 12/12/18 00:21 [From ZITHROMAX Z-NASIR] morphine [MORPHINE] Allergy Mild Verified 12/12/18 00:21 Review of Systems - *Cardiovascular Reports chest pain, Reports shortness of breath with activity - *Respiratory Reports cough, Reports shortness of breath with activity - *Gastrointestinal Denies abdominal pain, Denies belching, Denies vomiting - *Genitourinary Denies painful urination, Denies dribbling after urination - *Musculoskeletal Denies joint pain, Denies back pain - *Neurologic Denies dizziness, Denies memory loss, Denies fainting Exam Vital signs and Labs for Last 24 Hours: Temp Pulse Resp BP Pulse Ox 98.1 F 102 H 18 118/88 99 02/07/19 04:27 02/07/19 04:27 02/07/19 04:27 02/07/19 04:27 02/07/19 04:27 Laboratory Results - last 24 hr 02/06/19 22:15: WBC 8.9, RBC 4.69, Hgb 14.1, Hct 42.9, MCV 91.5, MCH 30.1, MCHC 32.9, RDW 13.5, Plt Count 390, MPV 6.6 L, Neut % (Auto) 65.7, Lymph % (Auto) 22.9, Ceiba % (Auto) 7.8, Eos % (Auto) 3.4, Baso % (Auto) 0.4, Neut # (Auto) 5.9, Lymph # (Auto) 2.0, Ceiba # (Auto) 0.7, Eos # (Auto) 0.3, Baso # (Auto) 0.0 02/06/19 22:15: Sodium 138, Potassium 4.0, Chloride 101, Carbon Dioxide 32, Anion Gap 9.0, BUN 29 H, Creatinine 1.17 H, Estimated Creat Clear 46, Estimated GFR 49 L, Est GFR ( Amer) 59, Glucose 95, Calcium 9.0, Troponin I < 0.02 02/06/19 22:15: B-Natriuretic Peptide < 5 02/07/19 00:00: TSH 1.76 D, Thyroxine (T4) 9.5 02/07/19 03:35: Troponin I < 0.02 02/07/19 05:46: WBC 9.2, RBC 4.59, Hgb 13.8, Hct 41.9, MCV 91.2, MCH 30.0, MCHC 32.9, RDW 13.5, Plt Count 370, MPV 6.7 L, Neut % (Auto) 60.3, Lymph % (Auto) 28.4, Ceiba % (Auto) 7.3, Eos % (Auto) 3.5, Baso % (Auto) 0.6, Neut # (Auto) 5.5, Lymph # (Auto) 2.6, Ceiba # (Auto) 0.7, Eos # (Auto) 0.3, Baso # (Auto) 0.1 02/07/19 05:46: Sodium 138, Potassium 3.8, Chloride 102, Carbon Dioxide 31, Anion Gap 8.8, BUN 32 H, Creatinine 1.17 H, Estimated Creat Clear 44, Estimated GFR 49 L, Est GFR ( Amer) 59, Glucose 87, Calcium 8.9, Magnesium 2.2, Troponin I < 0.02, Triglycerides 166, Cholesterol 214 H, LDL Cholesterol 121, VLDL Cholesterol 33, HDL Cholesterol 60, Cholesterol/HDL Ratio 3.6 H I & O for Last 24 hours: Intake & Output 02/04/19 02/05/19 02/06/19 02/07/19 11:59 11:59 11:59 11:59 Output Total 350 / 350 Balance -350 / -350 Weight 260 lb - *Routine HEENT Exam Head: Present: normocephalic Eye: Present: EOMI, PERRL ENT: Present: mucous membranes moist - *Routine Neck Exam Present: supple. Absent: JVD, carotid bruit - *Routine Respiratory Exam Present: CTA bilaterally. Absent: accessory muscle use, rales, rhonchi, wheezes - *Routine Cardiovascular Exam Present: RRR. Absent: murmur, gallop, rubs - *Routine Abdominal Exam Present: soft. Absent: tenderness, distended, guarding - *Routine Extremities Exam Absent: edema, calf tenderness - *Routine Neurological Exam Present: alert, oriented X3, moving all extremities Assessment and Plan (1) Chest pain Current visit: Yes Status: Acute Qualifiers: Chest pain type: precordial pain Qualified Code(s): R07.2 - Precordial pain Category: Medical Code(s): R07.9 - Chest pain, unspecified (2) Shortness of breath Current visit: No Status: Acute Category: Medical Code(s): R06.02 - Shortness of breath (3) Renal insufficiency Current visit: Yes Status: Acute Category: Medical Code(s): N28.9 - Disorder of kidney and ureter, unspecified (4) Edema Current visit: No Status: Acute Qualifiers: Edema type: unspecified Qualified Code(s): R60.9 - Edema, unspecified Category: Medical Code(s): R60.9 - Edema, unspecified (5) Hyperlipidemia Current visit: No Status: Chronic Qualifiers: Hyperlipidemia type: unspecified Qualified Code(s): E78.5 - Hyperlipidemia, unspecified Category: Medical Code(s): E78.5 - Hyperlipidemia, unspecified (6) Hypertension Current visit: No Status: Chronic Qualifiers: Hypertension type: essential hypertension Qualified Code(s): I10 - Essential (primary) hypertension Category: Medical Code(s): I10 - Essential (primary) hypertension (7) Morbid obesity Current visit: No Status: Chronic Category: Medical Code(s): E66.01 - Morbid (severe) obesity due to excess calories - Assessment and plan all Dx Assessment and Plan for all problems:: 1. Will give one additional IV lasix and supplemental potassium. 2. Enforced reduced sodium diet including sodas. 3. Resume home meds of metoprolol 50 mg BID, lasix 40 mg BID, spironolactone 100 mg daily and olmesartan 20 mg daily. 4. OK for discharge home from cardiology standpoint and keep appt with Dr. MCCARTHY tomorrow.
--- NOTE | 2019-02-07 14:06 | H&P/Discharge Summary ---
General - General Admission date:: 02/07/19 Discharge date: 02/07/19 *Admission Date: 02/06/19 *Chief complaint: chest pain *History of present illness: this wf presented to the ed with sob and chest pain last pm - she has had issues with chf in past - she has been compliant with meds - she was admitted for serial enz and card consult - [facility] History I have reviewed the patient's past medical history: Yes Medical History: Reports:: Anxiety, Depression, Hyperlipidemia, Hypertension, Myocardial Infarction, Palpitations Denies:: Cancer, Diabetes Mellitus Type 1, Diabetes Mellitus Type 2, MRSA *Have you ever received a pneumonia vaccine?: No *Have you received a flu vaccine this season?: No Other Medical History: Reports: Arthritis, Fibromyalgia Laterality Cases: Bilateral: Carpal Tunnel Release, Tonsillectomy Other Surgeries: Yes: Cardiac Catheterization, Cholecystectomy, Colonoscopy, C- section, Hernia Repair, Hysterectomy-Partial, Other Amputation: No Fractures: No - *Social History Educational Level: Completed College Smoking Status: Never smoker Alcohol Intake: never Substance Use Type: denies use *Occupational Status:: employed Housing: house *Travel in the last 8 weeks: None - Psychiatric History Expresses thoughts of harming self/others: None Suicide Plan Description: No Plan Pschychiatric History:: Reports:: Anxiety, Depression Family Hx:: Cancer, Diabetes, Heart Attack, Hyperlipidemia, Hypertension, Stroke Review of Systems - Review of Systems Review of systems:: pertinent systems reviewed and negative unless documented below - Constitutional Denies fever(s) - Eyes Denies change in vision - ENT Denies sore throat - *Cardiovascular Reports chest pain at rest, Reports shortness of breath - *Respiratory Reports cough, Denies change in phlegm color, Denies coughing up blood - *Gastrointestinal Denies abdominal pain - *Genitourinary Denies blood in urine - *Musculoskeletal Denies joint pain - Integumentary/Breasts Denies rash - *Neurologic Denies dizziness, Denies memory loss, Denies fainting - Psychiatric Denies anxiety Exam Vital signs and Labs for Last 24 Hours: Temp Pulse Resp BP Pulse Ox 98.2 F 82 18 123/64 97 02/07/19 08:00 02/07/19 12:00 02/07/19 08:00 02/07/19 08:00 02/07/19 08:00 Laboratory Results - last 24 hr 02/06/19 22:15: WBC 8.9, RBC 4.69, Hgb 14.1, Hct 42.9, MCV 91.5, MCH 30.1, MCHC 32.9, RDW 13.5, Plt Count 390, MPV 6.6 L, Neut % (Auto) 65.7, Lymph % (Auto) 22.9, Braxton % (Auto) 7.8, Eos % (Auto) 3.4, Baso % (Auto) 0.4, Neut # (Auto) 5.9, Lymph # (Auto) 2.0, Braxton # (Auto) 0.7, Eos # (Auto) 0.3, Baso # (Auto) 0.0 02/06/19 22:15: Sodium 138, Potassium 4.0, Chloride 101, Carbon Dioxide 32, Anion Gap 9.0, BUN 29 H, Creatinine 1.17 H, Estimated Creat Clear 46, Estimated GFR 49 L, Est GFR ( Amer) 59, Glucose 95, Calcium 9.0, Troponin I < 0.02 02/06/19 22:15: B-Natriuretic Peptide < 5 02/07/19 00:00: TSH 1.76 D, Thyroxine (T4) 9.5 02/07/19 03:35: Troponin I < 0.02 02/07/19 05:46: WBC 9.2, RBC 4.59, Hgb 13.8, Hct 41.9, MCV 91.2, MCH 30.0, MCHC 32.9, RDW 13.5, Plt Count 370, MPV 6.7 L, Neut % (Auto) 60.3, Lymph % (Auto) 28.4, Braxton % (Auto) 7.3, Eos % (Auto) 3.5, Baso % (Auto) 0.6, Neut # (Auto) 5.5, Lymph # (Auto) 2.6, Braxton # (Auto) 0.7, Eos # (Auto) 0.3, Baso # (Auto) 0.1 02/07/19 05:46: Sodium 138, Potassium 3.8, Chloride 102, Carbon Dioxide 31, Anion Gap 8.8, BUN 32 H, Creatinine 1.17 H, Estimated Creat Clear 44, Estimated GFR 49 L, Est GFR ( Amer) 59, Glucose 87, Calcium 8.9, Magnesium 2.2, Troponin I < 0.02, Triglycerides 166, Cholesterol 214 H, LDL Cholesterol 121, VLDL Cholesterol 33, HDL Cholesterol 60, Cholesterol/HDL Ratio 3.6 H I & O for Last 24 hours: Intake & Output 02/05/19 02/06/19 02/07/19 02/08/19 11:59 11:59 11:59 11:59 Output Total 350 / 350 Balance -350 / -350 Weight 260 lb - Constitutional no acute distress, obese - *Routine HEENT Exam Head: Present: normocephalic Eye: Present: EOMI, PERRL ENT: Present: mucous membranes dry - *Routine Neck Exam Present: supple. Absent: JVD - *Routine Respiratory Exam Present: decreased breath sounds - *Routine Cardiovascular Exam Present: RRR, murmur, S4 - *Routine Abdominal Exam Present: soft - *Routine Extremities Exam Present: edema. Absent: calf tenderness - *Routine Skin Exam Present: intact - *Routine Neurological Exam Present: alert, oriented X3, CN II-XII intact - Routine Psychiatric Exam Present: normal affect Hospital Course Hospital Course: pt remained stable on monitor and had stable cardiac enz - she was seen by [facility] -8 yo with 3 days history of increasing SOA with left sided chest pain, non- exertional in nature. Some associated LE edema noted. Relates recent increase in salt intake. She was concerned for "CHF or lung issues since I just got over bronchitis recently." Pt was admitted, troponins normal X 3, EKG normal, CXR showed no evidence of CHF with normal BNP. Recent cardiac cath in 10/2018 showed normal coronaries and LVEF with normal right heart pressures. She has been seen in the outpatient setting over the last 3 months with med adjustment for presumed diastolic dysfunction with successful treatment using diuretics and BP meds. Cardiology consulted for evaluation and recommendations. Preliminary echo this AM shows normal LVEF with mild to moderate MR. esity 2. Normal coronary arteries by [facility], 10/2018, with elevated troponins secondary to cardiac strain. A. ANGIOGRAPHIC RESULTS: 1. The left main artery normal 2. The left anterior descending artery angiographically normal 3. The circumflex artery is non dominant and angiographically normal 4. The right coronary artery dominant and angiographically normal 5. The FLETCHER ventriculogram reveals 65-70% 6. The left ventricular end-diastolic pressure 13 HEMODYNAMICS: Right atrial pressure is 4 mm Hg. Pulmonary arterial pressure is 32/18 mm Hg. Pulmonary artery occlusion pressure is 14 mm Hg. SATURATIONS: RA is 78 %. PA is 76 %. IMPRESSION: 1. Normal coronary arteries 2. Normal left ventricular systolic function 3. Normal left ventricular end-diastolic pressure and pulmonary capillary wedge pressure 4. Normal pulmonary artery pressure 5. Normal pulmonary artery saturation signifying normal cardiac output index 3. HTN 4. Depression esity Will give one additional IV lasix and supplemental potassium. 2. Enforced reduced sodium diet including sodas. 3. Resume home meds of metoprolol 50 mg BID, lasix 40 mg BID, spironolactone 100 mg daily and olmesartan 20 mg daily. 4. OK for discharge home from cardiology standpoint and keep appt with Dr. MCCARTHY tomorrow. pt has appt for close follow up in am - Results Labs on day of discharge: Labs from last 24 hours 02/07/19 02/07/19 02/07/19 05:46 05:46 03:35 WBC 9.2 RBC 4.59 Hgb 13.8 Hct 41.9 MCV 91.2 MCH 30.0 MCHC 32.9 RDW 13.5 Plt Count 370 MPV 6.7 L Neut % (Auto) 60.3 Lymph % (Auto) 28.4 Braxton % (Auto) 7.3 Eos % (Auto) 3.5 Baso % (Auto) 0.6 Neut # (Auto) 5.5 Lymph # (Auto) 2.6 Braxton # (Auto) 0.7 Eos # (Auto) 0.3 Baso # (Auto) 0.1 Sodium 138 Potassium 3.8 Chloride 102 Carbon Dioxide 31 Anion Gap 8.8 BUN 32 H Creatinine 1.17 H Estimated Creat Clear 44 Estimated GFR 49 L Est GFR ( Amer) 59 Glucose 87 Calcium 8.9 Magnesium 2.2 Troponin I < 0.02 < 0.02 B-Natriuretic Peptide Triglycerides 166 Cholesterol 214 H LDL Cholesterol 121 VLDL Cholesterol 33 HDL Cholesterol 60 Cholesterol/HDL Ratio 3.6 H TSH Thyroxine (T4) 02/07/19 02/06/19 02/06/19 00:00 22:15 22:15 WBC RBC Hgb Hct MCV MCH MCHC RDW Plt Count MPV Neut % (Auto) Lymph % (Auto) Braxton % (Auto) Eos % (Auto) Baso % (Auto) Neut # (Auto) Lymph # (Auto) Braxton # (Auto) Eos # (Auto) Baso # (Auto) Sodium 138 Potassium 4.0 Chloride 101 Carbon Dioxide 32 Anion Gap 9.0 BUN 29 H Creatinine 1.17 H Estimated Creat Clear 46 Estimated GFR 49 L Est GFR ( Amer) 59 Glucose 95 Calcium 9.0 Magnesium Troponin I < 0.02 B-Natriuretic Peptide < 5 Triglycerides Cholesterol LDL Cholesterol VLDL Cholesterol HDL Cholesterol Cholesterol/HDL Ratio TSH 1.76 D Thyroxine (T4) 9.5 02/06/19 22:15 WBC 8.9 RBC 4.69 Hgb 14.1 Hct 42.9 MCV 91.5 MCH 30.1 MCHC 32.9 RDW 13.5 Plt Count 390 MPV 6.6 L Neut % (Auto) 65.7 Lymph % (Auto) 22.9 Braxton % (Auto) 7.8 Eos % (Auto) 3.4 Baso % (Auto) 0.4 Neut # (Auto) 5.9 Lymph # (Auto) 2.0 Braxton # (Auto) 0.7 Eos # (Auto) 0.3 Baso # (Auto) 0.0 Sodium Potassium Chloride Carbon Dioxide Anion Gap BUN Creatinine Estimated Creat Clear Estimated GFR Est GFR ( Amer) Glucose Calcium Magnesium Troponin I B-Natriuretic Peptide Triglycerides Cholesterol LDL Cholesterol VLDL Cholesterol HDL Cholesterol Cholesterol/HDL Ratio TSH Thyroxine (T4) DS: Diagnosis - Discharge Diagnosis (1) Chest pain Status: Acute (2) Shortness of breath Status: Acute (3) Renal insufficiency Status: Acute (4) Edema Status: Acute (5) Hyperlipidemia Status: Chronic (6) Hypertension Status: Chronic (7) Morbid obesity Status: Chronic Discharge Medications - Medications for Discharge Home Medication List at Discharge: New Duloxetine HCl [Cymbalta 30mg capsule] 60 mg PO BID capsule. Furosemide [Lasix 40mg tablet] 40 mg PO BIDL tablet Irbesartan [Avapro 150mg tablet] 150 mg PO DAILY tablet Linaclotide [Linzess] 145 mcg PO DAILY Metoprolol Tartrate [Lopressor 50mg tablet] 50 mg PO BID tablet Continued famotidine 20 mg tablet 20 mg PO HS omega-3 fatty acids 1,000 mg capsule 1,000 mg PO DAILY tizanidine 4 mg capsule 8 mg PO QHS PRN #60 cap PRN Reason: muscle spasticity ondansetron HCl 8 mg tablet 8 mg PO BID PRN #30 tab PRN Reason: nausea and vomiting Spironolactone 100 mg PO DAILY Olmesartan Medoxomil 20 mg PO DAILY Furosemide [Furosemide 40MG tAB] 40 mg PO BID Cholecalciferol (Vitamin D3) [Vitamin D3] 5,000 unit PO DAILY Vitamin E 1,000 unit PO DAILY Acetaminophen [Acetaminophen 325mg tab] 650 mg PO Q4HP PRN tab PRN Reason: As Needed For Fever Or Pain Metoprolol Tartrate 50 mg PO BID Duloxetine HCl [Cymbalta] 60 mg PO DAILY Linaclotide [Linzess] 145 mcg PO DAILY Discontinued Ibuprofen [Ibuprofen 600mg Tablet] 600 mg PO TID
--- NOTE | 2019-02-08 10:38 | Cardiology Report ---
PROCEDURE: INDICATIONS FOR THE TEST: Chest pain+ COPD Heart Murmur Tobacco Smoking Palpitations+ Fatigue+ Syncope Edema+ Hypertension+Diabetes Mellitus+ Rheumatic Fever SOB+WYATT Obesity Hyperlipidemia+ Family History HD Additional History EF 40-45% 10/12/18 PATIENT INFORMATION HEIGHT: 62 WEIGHT: 255 GENDER: F B/P: 105/59 2-D/M-MODE INTERPRETATION: 2-D MEASUREMENTS OBSERVED VALUES IN CMS Right Ventricular Dimension (RVDd) 2.7 Interventricular Septum (Thickness)(IVsd) 0.9 Left Ventricular Internal Dimensions(LVIDd) 4.2 Left Ventricular Posterior Wall (Thickness)(LVPWd) 1.0 Aortic Root 3.1 Aortic Cusp Separation 2.4 Left Atrial Dimensions (LAD) 4.0 2D 1. Left atrium is mildly enlarged, left ventricle is normal size, mild concentric left ventricular hypertrophy, visually estimated ejection fraction 55% with no regional wall motion abnormality. 2. The right atrium and right ventricle are relatively normal size and function. 3. The aortic valve is thickened and calcified leaflet continue to display mobility. 4. The mitral and tricuspid valve are grossly normal. 5. The pulmonic valve is poorly present. 6. No significant pericardial effusion noted. DOPPLER INTERROGATION: Doppler interrogation of the aortic, mitral and tricuspid valvular presence of mild mitral and tricuspid regurgitation, tricuspid regurgitation velocity is inadequate for calculation of the right ventricular systolic pressure, grade 1 diastolic dysfunction seen without tissue Doppler evidence of raised left atrial pressure. CONCLUSION: 1. Left atrium is mildly enlarged, left ventricle is normal size, mild concentric left ventricular hypertrophy, visually estimated ejection fraction 55% with no regional wall motion abnormality, grade 1 diastolic dysfunction seen without tissue Doppler evidence of raised left atrial pressure. 2. Mild mitral and tricuspid regurgitation 3. No significant pericardial effusion noted
== END 2019-02-07 15:06 | disposition home or self-care (01) ==
LOC: ER 22:05 → ICU 22:05
PROVIDERS: ADMIT Emergency Medicine; ATTEND Emergency Medicine
DX: N28.9 Disorder of kidney and ureter, unspecified; Z79.899 Other long term (current) drug therapy; Z88.6 Allergy status to analgesic agent; Z88.8 Allergy status to other drugs, medicaments and biological substances; I10 Essential (primary) hypertension; E78.5 Hyperlipidemia, unspecified; I25.2 Old myocardial infarction; R07.9 Chest pain, unspecified; E66.01 Morbid (severe) obesity due to excess calories; R07.2 Precordial pain; R06.02 Shortness of breath; R60.9 Edema, unspecified; Z68.42 Body mass index [BMI] 45.0-49.9, adult
CPT/HCPCS: 36415; 71020; 71046; 80048; 80061; 83735; 83880; 84436; 84443; 84484; 85025; 93005; 93306; 96374; 96375; 99284; G0378

== ENCOUNTER → 2019-02-22 11:09 | Outpatient (CLI) | payer OTHER, SELFPAY ==
[2019-02-22 11:31] VITALS: PULSE 71; PULSE 74
== END ==
PROVIDERS: PCP Emergency Medicine; Visit Provider Emergency Medicine
DX: R06.02 Shortness of breath (principal)
CPT/HCPCS: 94060; 94640

== ENCOUNTER → 2019-03-16 06:28 | Outpatient (CLI) | payer OTHER, SELFPAY ==
--- NOTE | 2019-03-16 06:32 | NM_ITS ---
CARDIOLITE SPECT MYOCARDIAL PERFUSION LEXISCAN, REST AND STRESS: History: Hypertension, hyperlipidemia, family history, chest pain, shortness of breath, palpitations and fatigue Procedure: Patient received a 0.4 mg of intravenous Lexiscan, resting heart rate was 75 beats per resting blood pressure 127/72, with Lexiscan maximum heart rate achieved was 105 beats per minute, which is less than 85% of the maximum predicted heart rate and a blood pressure is 116/76. With Lexiscan patient complained of nausea. Electrocardiogram: Resting electrocardiogram showed sinus rhythm, with Lexiscan there is less than 1.[address] segment depression noted from the baseline EKG. The EKG portion of the Lexiscan Myoview is nondiagnostic. Cardiac stress and resting SPECT images: Cardiac stress and resting SPECT images were obtained using technetium 99 Myoview 29.2 mCi stress and 9.6 mCi at rest. Gated SPECT further analysis of segmental wall motion and calculation of the ejection fraction also done. Cardiac stress and resting SPECT images show uniform myocardial activity without segmental perfusion abnormality, computer derived ejection fraction is 60% with no regional wall motion abnormality, right ventricle is normal size and contractility. Conclusion: 1. The EKG portion of the Lexiscan Myoview is nondiagnostic. 2. No scintigraphic evidence of reversible ischemia seen, computer derived ejection fraction is 60% with no regional wall motion abnormality, right ventricle is normal size and contractility. 3. Normal Lexiscan Myoview study.
--- NOTE | 2019-03-16 09:45 | HMH.ITSHM ---
Current Home Medications as stated by this patient Merary Wong or service liaison representative. []tizanidine omeprazole losartan famotidine metoprolol linzess forosemide ondansetron
== END ==
PROVIDERS: PCP Emergency Medicine; Referring Provider Internal Medicine Cardiovascular Disease; Visit Provider Emergency Medicine
DX: G47.33 Obstructive sleep apnea (adult) (pediatric) (principal); R06.02 Shortness of breath; E66.01 Morbid (severe) obesity due to excess calories; E78.5 Hyperlipidemia, unspecified; I10 Essential (primary) hypertension; I50.9 Heart failure, unspecified; R06.83 Snoring; R40.0 Somnolence
CPT/HCPCS: 78452; 93017; 95806; A9502; J2785

== ENCOUNTER → 2019-04-23 17:09 | Outpatient (CLI) | payer OTHER, SELFPAY ==
[2019-04-23 18:13] LABS: Anion Gap 12.1 mEq/L (5-15); Blood Urea Nitrogen 14 mg/dL (7-18); Calcium 9.4 mg/dL (8.5-10.1); Carbon Dioxide 30 mmol/L (21.0-32.0); Chloride 102 mmol/L (98-107); Creatinine,Serum 0.92 mg/dL (0.55-1.02); Estimated Glomerular Filt Rate 65 ml/min (>60); GFR (African American) 79 ML/MIN (>60); Glucose 100 mg/dL (74-106); Potassium 4.1 mmoL/L (3.5-5.1); Sodium 140 mmol/L (136-145)
== END ==
PROVIDERS: Visit Provider Emergency Medicine
DX: R53.83 Other fatigue (principal)
CPT/HCPCS: 80048

== ENCOUNTER → 2019-05-24 10:22 | Outpatient (CLI) | payer OTHER, SELFPAY ==
--- NOTE | 2019-05-24 10:26 | XR_ITS ---
PROCEDURE: XR HAND RT MIN 3V CLINICAL INDICATION: right hand pain/ trigger finger COMPARISON: No exams were available for comparison FINDINGS: No fracture or dislocation. No lytic or blastic change. There is normal mineralization. The joint spaces are well-preserved. No significant degenerative/arthritic changes. No erosive changes evident. Other findings:None. IMPRESSION: No acute findings. Dictated by: Gerson Mcneill MD 05/24/2019 13:12 Signed by: <Electronically signed by Gerson Mcneill MD in [place]> 05/24/2019 13:12
== END ==
PROVIDERS: PCP Emergency Medicine; Visit Provider Orthopaedic Surgery
DX: M79.641 Pain in right hand (principal)
CPT/HCPCS: 73130

== ENCOUNTER 2020-05-22 18:41 | Emergency (ER) | payer MEDICAID, SELFPAY ==
[2020-05-22 18:58] VITALS: BP 126/80; PULSE 80; RESP 12; TEMP 36.9; O2SAT 97; BMI 48.4
--- NOTE | 2020-05-22 19:05 | HMH.EDUTC ---
[facility] Disposition Clinical Impression: Pharyngitis Qualifiers: Pharyngitis/tonsillitis etiology: unspecified etiology Qualified Code(s): J02.9 - Acute pharyngitis, unspecified Disposition: Home, Self-Care Condition on Discharge: Good Instructions: Sore Throat, DI for Pharyngitis/Tonsillopharyngitis -- Adult Additional Instructions: Drink plenty of fluids. Take tylenol or ibuprofen for pain or fever. Take the medications as directed. Follow up with your regular doctor. GO TO THE ER FOR ANY WORSENING SYMPTOMS FOLLOW THE DIRECTIONS ON THE COVID-19 HAND OUT THAT WE GAVE YOU REGARDING SELF-ISOLATION UNTIL YOU KNOW YOUR COVID-19 RESULTS Prescriptions: Amoxicillin [Amoxicillin 500mg Tab] 500 mg PO TID 10 Days #30 tab Transmission Status: Received by [id number] Fluconazole [Diflucan 150mg tab] 150 mg PO ONCE #1 tab Transmission Status: Received by [id number] Referrals: Lul Urena MD [Primary Care Provider] - Forms: Work/School Release Time of Disposition: 19:27 Medical Decision Making - Medical Records Medical records reviewed: No: I reviewed the patient's medical records. - [place] Inquiry Pt receiving controlled substance: No Vital Signs: 05/22/20 18:58 Temperature 98.4 F Temperature Source Oral Pulse Rate [Radial] 80 Respiratory Rate 12 Blood Pressure [Right Arm] 126/80 Blood Pressure Mean [Right Arm] 95 Blood Pressure Source [Right Arm] Automatic Cuff Blood Pressure Position [Right Arm] Sitting 02 Sat by Pulse Oximetry 97 Oxygen Delivery Method Room Air - Lab Data Lab results reviewed: Yes: I reviewed the patient's lab results. Lab Results 05/22/20 18:59: Strep Scn Rapid Clinic Negative Orders (Tests/Meds): ORDERS Category Date Time Status SARS-CoV-2, [place] Stat Lab 05/22/20 18:59 Ordered Strep Screen Confirmation Stat Micro 05/22/20 18:59 Received [facility] HPI - General Stated complaint: Blisters on tongue, headache Time Seen by Provider: 05/22/20 19:06 Mode of Arrival: Ambulatory Source of Information: Patient Limitations: No Limitations Description of Symptoms (Recalled from Triage Doc. by RN): headache, blisters in mouth, roof of mouth peeling. exposed to covid HEENT Symptoms (Recalled from RN notes): Yes Resp Symptoms (Recalled from RN notes): No Skin Symptoms (Recalled from RN notes): No MS Symptoms (Recalled from RN notes): No Functional Status (Recalled from RN notes): wnl - History of Present Illness Provider Complaint: She states that she has a sore throat and soreness on the back of the roof of her mouth. This began 2 days ago. She denies any fever or chills. She does have a mild cough. She denies any fever or chills, But she did find out that she was exposed to COVID-19 approx 1 week ago. - Related Data Home Medications Medication Instructions Recorded Confirmed famotidine 20 mg tablet 20 mg PO HS 11/14/17 12/11/19 Vitamin E 1,000 unit PO DAILY 01/31/18 12/11/19 omega-3 fatty acids 1,000 mg 1,000 mg PO DAILY 10/18/18 12/11/19 capsule Cholecalciferol (Vitamin D3) 5,000 unit PO DAILY 02/07/19 12/11/19 [Vitamin D3] cetirizine 10 mg tablet 10 mg PO DAILY 05/24/19 12/11/19 albuterol sulfate 90 mcg/actuation INHALATION 12/11/19 12/11/19 aerosol inhaler beclomethasone dipropionate 40 1 inh INHALATION BID g 12/11/19 12/11/19 mcg/actuation HFA breath activated aerosol Previous Rx's Medication Instructions Recorded Acetaminophen [Acetaminophen 325mg 650 mg PO Q4HP PRN tab 10/13/18 tab] tizanidine 4 mg tablet 4 mg PO Q8H PRN #90 tab 10/12/19 furosemide 40 mg tablet 40 mg PO BID 90 Days #180 tab 11/29/19 losartan 50 mg tablet 50 mg PO DAILY #90 tab 11/29/19 metoprolol tartrate 50 mg tablet 50 mg PO BID #180 tab 11/29/19 spironolactone 100 mg tablet 100 mg PO DAILY #90 tab 11/29/19 duloxetine 60 mg capsule,delayed 60 mg PO BID #180 cap 12/11/19 release polyethylene glycol 3350 17 17 g P
[2020-05-22 19:24] LABS: UTC Strep Screen (Rapid) Negative (Negative)
[2020-05-22 19:50] VITALS: BP 126/80; PULSE 80; RESP 12; TEMP 36.9; O2SAT 97
[2020-05-24 16:03] LABS: Covid-19 Nasal PCR Sendout Lex Not Detected
== END 2020-05-22 19:52 | disposition home or self-care (01) ==
PROVIDERS: Emergency Provider Nurse Practitioner Family; PCP Emergency Medicine
DX: J02.9 Acute pharyngitis, unspecified (principal); F41.8 Other specified anxiety disorders; E78.5 Hyperlipidemia, unspecified; I10 Essential (primary) hypertension; I25.2 Old myocardial infarction; M79.7 Fibromyalgia; Z20.828 Contact with and (suspected) exposure to other viral communicable diseases; Z79.899 Other long term (current) drug therapy; Z88.1 Allergy status to other antibiotic agents; Z88.5 Allergy status to narcotic agent
CPT/HCPCS: 87880; 99202; U0004

== ENCOUNTER → 2020-08-26 16:00 | Outpatient (CLI) | payer MEDICAID, SELFPAY ==
--- NOTE | 2020-08-26 16:00 | MM_ITS ---
PROCEDURE: MM DIG SCREENING MAMM BI W/CAD Referring Doctor: Lul Urena Patient Age:49Y CLINICAL INDICATION: screening No hormones but no new complaints but partial hysterectomy 2014. Family history: Maternal grandmother and maternal great aunt with breast cancer COMPARISON: No prior mammogram studies from this facility are available in PACS + And breast were not included on prior CT due the patient's size/positioning TECHNIQUE: Standard CC and MLO images were obtained. R2 CAD reviewed. Bilateral digital breast tomosynthesis included. Multiple additional cc and MLO view on right. Left breast with additional nipple profile views cc and MLO FINDINGS: Generous volume, low-density breast with generalized fatty replacement (mammography more optimal screening tool within breast of this low-density character). No suspicious calcifications. CAD computer review highlights no areas of significant concern. No dominant or suspicious mass in either breast. Follow-up 1 year recommended (No prior films were ever presented for comparison in PACS a despite a repeated request for search for such) IMPRESSION: .. No areas of significant concern. No evidence of malignancy radiographically Low-density generous volume breast with diffuse fatty replacement Bilateral follow-up 1 year recommended BI-RAD Category: 1 Negative FOLLOW-UP: 1YR 1 Year Follow-up (A letter has been sent to the patient regarding results of the study.) Dictated by: Andrew Clark MD 09/03/2020 11:21 Andrew Clark MD in [place] 09/03/2020 11:21
== END ==
PROVIDERS: PCP Emergency Medicine; Visit Provider Emergency Medicine
DX: Z12.31 Encounter for screening mammogram for malignant neoplasm of breast (principal)
CPT/HCPCS: 77063; 77067

== ENCOUNTER → 2020-09-16 15:42 | Outpatient (CLI) | payer MEDICAID, SELFPAY ==
--- NOTE | 2020-09-16 15:45 | XR_ITS ---
PROCEDURE: XR CHEST 2V CLINICAL HISTORY: bilateral knee pain pre op, HX OF HIGH BLOOD PRESSURE COMPARISON: CR CXR2V XR chest 2V from 02/14/[address] angio chest from 02/14/2019 CR XR CHEST 2V from 10/10/2019 CR XR CHEST 2V from 12/29/2019 FINDINGS: The cardiomediastinal silhouette and pulmonary vascularity are within normal limits. The lungs are clear without infiltrates, suspicious nodules, or pleural effusions. Calcified granuloma is present in the left lower lobe medially. There are degenerative changes in the thoracic spine. IMPRESSION: No acute findings. Dictated by: Gerson Mcneill MD 09/16/2020 16:00 Gerson Mcneill MD in [place] 09/16/2020 16:00
[2020-09-16 16:39] LABS: Basophils # 0.1 K/mm3 (0-0.2); Basophils % 0.9 % (0.1-2.0); Eosinophils # 0.2 K/mm3 (0.0-0.4); Eosinophils % 2.6 % (0.1-12.0); Hematocrit 43.7 % (37.0-47.0); Hemoglobin 14.6 g/dL (12.2-16.2); Lymphocytes # 2.6 K/mm3 (0.7-4.5); Lymphocytes % 28.1 % (10-50); Mean Corpuscular HGB Conc 33.4 g/dL (31.8-35.4); Mean Corpuscular Hemoglobin 31.4 pg (27.0-31.2); Mean Corpuscular Volume 93.9 fl (81-99); Mean Platelet Volume 7.4 fl (7.4-10.4); Monocytes # 0.4 K/mm3 (0.1-1.0); Monocytes % 4.6 % (1.7-9.3); Neutrophils # 5.9 K/mm3 (1.8-7.8); Neutrophils % 63.7 % (37.0-80.0); Platelet Count 442 K/mm3 (142-424); Red Blood Count 4.66 M/mm3 (4.20-5.40); Red Cell Distribution Width 13.6 % (11.5-17.5); White Blood Count 9.3 K/mm3 (4.8-10.8)
[2020-09-16 17:13] LABS: INR 0.94 (0.9-1.1); Prothrombin Time 10.5 seconds (9.4-11.8)
[2020-09-16 17:35] LABS: Alanine Aminotransferase 32 U/L (12-78); Albumin Level 4.4 g/dl (3.5-5.0); Albumin/Globulin Ratio 1.5 (1.1-1.8); Alkaline Phosphatase 75 U/L (38-126); Anion Gap 15.6 mEq/L (5-15); Aspartate Amino Transferase 42 U/L (14-36); Bilirubin,Total 0.6 mg/dl (0.2-1.3); Blood Urea Nitrogen 21 mg/dl (7-17); Calcium 10.3 mg/dl (8.4-10.2); Carbon Dioxide 29 mmol/L (22.0-30.0); Chloride 100 mmol/L (98-107); Chol/HDL Ratio 3.5 (1-3.5); Cholesterol 200 mg/dl (140-200); Estimated Glomerular Filt Rate 37 ml/min (>60); GFR (African American) 44 ML/MIN (>60); Globulin 2.9 g/dL (1.3-3.2); Glucose 93 mg/dl (74-100); HDL Cholesterol 57 mg/dl (40-60); Potassium 4.6 mmoL/L (3.5-5.1); Sodium 140 mmol/L (136-145); Total Protein,Serum 7.3 g/dl (6.3-8.2); Triglycerides 236 mg/dl (30-150); VLDL Cholesterol 47 mg/dL (0-40)
[2020-09-16 17:47] LABS: Direct LDL Cholesterol 96.66 mg/dL (100-129)
[2020-09-16 17:49] LABS: Coronavirus 19 IgG Antibody Negative (Negative); Coronavirus 19 IgM Antibody Negative (Negative)
[2020-09-16 18:07] LABS: Thyroid Stimulating Hormone 1.82 uIU/mL (0.465-4.68)
[2020-09-18 10:03] LABS: Prealbumin 34 mg/dL (12-34)
== END ==
PROVIDERS: PCP Emergency Medicine; Visit Provider Physician Assistant
DX: M25.562 Pain in left knee (principal); M25.561 Pain in right knee
CPT/HCPCS: 36415; 71046; 80053; 80061; 84134; 84436; 84443; 85025; 85610; 86328

== ENCOUNTER → 2020-09-24 12:58 | Outpatient (CLI) | payer MEDICAID, SELFPAY ==
--- NOTE | 2020-09-24 12:59 | CA_ITS ---
APPROVED REPORT EXAM: Comprehensive 2D, Doppler, and color-flow Echocardiogram Flux Tube Attendant: Cassie Santoro RVT Ht: 5 ft 2 in Wt: 276lbs BSA: 2.19 BP: 112/80 mmHg Indications: PRE-OP,SOA,EDEMA,HAL,CHF,PALPS,OBESITY,HTN,HLD,HX MS 2D Dimensions LVOT 1.73 cm (M/F) 1.5-2.5 M-Mode Dimensions RVDd 3.23 cm (0.9-2.6) LA Diam 3.98 cm (1.9-4.0) LVDd 4.90 cm (3.5-5.7) Ao Diam 2.99 cm (2.0-3.7) LVDs 3.04 cm (3.5-5.7) IVSd 0.42 cm (0.6-1.1) PWd 0.53 cm (0.6-1.1) EF (Teich) 67.90% FS 38.00% EDV (Teich) 112.80 mL ESV (Teich) 36.20 mL LV Diastology E Decel Time 273.00 (160-240 msec) E/A Ratio 0.7 MED E' 4.70 (< 7 cm/sec) E'/MED E' Ratio 12.21 (>14) LAT E' 5.40 (<10 cm/sec) E/LAT E' Ratio 10.63 (>14) Mitral Valve MV E Max Jerod. 57.00 (40-130 cm/s) MV A Velocity 85.00 (40-130 cm/s) E/A Ratio 0.68 MV Decel. Time 273.00 (160-240 ms) MV PHT 80.00 ms Pulmonary Valve PV Peak Velocity 79.00 (50-150 cm/s) Left Ventricle Technically difficult study because of the patient factors and poor acoustic windows. Left atrium is mildly enlarged, left ventricle is normal size, mild concentric left ventricular hypertrophy, visually estimated ejection fraction 50%, with moderate inferior basal wall hypokinesis. Grade 1 diastolic dysfunction seen without tissue Doppler evidence of raise left atrial pressure. Right Ventricle Right atrium and right ventricle are mildly enlarged with normal contractility. Aortic Valve Aortic valve is thickened and calcified leaflet chordae display good mobility, there is no aortic stenosis or aortic insufficiency. Mitral Valve Mitral valve is grossly normal, there is mild mitral regurgitation. Tricuspid Valve Tricuspid valve is grossly normal, there is mild tricuspid regurgitation, tricuspid regurgitation jet velocity is inadequate for calculation of the right ventricular systolic pressure. Pulmonic Valve Pulmonic valve is poorly visualized. Great Vessels Aortic root is normal size. Pericardium No significant pericardial effusion noted. Conclusion 1. Mild biatrial enlargement, normal left ventricular size, mild concentric left ventricular hypertrophy, visually estimated ejection fraction 50% with segmental wall motion abnormalities as described above, grade 1 diastolic dysfunction seen without tissue Doppler evidence of raise left atrial pressure. 2. Mildly enlarged right ventricle with normal contractility. 3. Mild mitral and tricuspid regurgitation. 4. No significant pericardial effusion noted. Electronically signed by : Vipin Quan, 09/25/2020 12:46:47
== END ==
PROVIDERS: PCP Emergency Medicine; Visit Provider Nurse Practitioner Family
DX: Z01.810 Encounter for preprocedural cardiovascular examination (principal); R06.00 Dyspnea, unspecified; I10 Essential (primary) hypertension; E78.2 Mixed hyperlipidemia; R42 Dizziness and giddiness
CPT/HCPCS: 93306

== ENCOUNTER 2020-09-28 13:02 | Emergency (ER) | payer MEDICAID, SELFPAY ==
[2020-09-28 13:20] VITALS: BP 114/71; PULSE 71; RESP 18; TEMP 36.8; O2SAT 98; BMI 45.7
--- NOTE | 2020-09-28 13:31 | HMH.EDUTC ---
[facility] [place] Disposition Clinical Impression: Exposure to COVID-19 virus Disposition: Home, Self-Care Condition on Discharge: Good Instructions: Preventing the Spread of Coronavirus Discharge Instructions Additional Instructions: You have been tested for COVID19. Please isolate yourself as if you are positive until test results are received. Referrals: Lul Urena MD [Primary Care Provider] - Time of Disposition: 13:34 Medical Decision Making - [place] Inquiry Pt receiving controlled substance: No Vital Signs: 09/28/20 13:20 Temperature 98.2 F Temperature Source Oral Pulse Rate [Radial] 71 Respiratory Rate 18 Blood Pressure [Right Arm] 114/71 Blood Pressure Mean [Right Arm] 85 Blood Pressure Source [Right Arm] Automatic Cuff Blood Pressure Position [Right Arm] Sitting 02 Sat by Pulse Oximetry 98 Oxygen Delivery Method Room Air Orders (Tests/Meds): ORDERS Category Date Time Status Covid-19 Nasal PCR ([facility]) Routine Lab 09/28/20 13:08 Received [facility] [place] HPI - General Stated complaint: covid test Time Seen by Provider: 09/28/20 13:31 Mode of Arrival: Ambulatory Source of Information: Patient Limitations: No Limitations Description of Symptoms (Recalled from Triage Doc. by RN): covid test HEENT Symptoms (Recalled from RN notes): No Resp Symptoms (Recalled from RN notes): No Skin Symptoms (Recalled from RN notes): No MS Symptoms (Recalled from RN notes): No Functional Status (Recalled from RN notes): wnl - History of Present Illness Provider Complaint: Patient has had 1 week history of cough, runny nose. Denies ear pain, sore throat. Denies loss of taste or smell. Denies vomiting or diarrhea. was exposed to COVID19 and he has had same symptoms. Onset (ago): week(s) (1) Relieving factors: none Exacerbating factors: none Associated symptoms: denies other symptoms Treatments prior to arrival: none - Related Data Home Medications Medication Instructions Recorded Confirmed Vitamin E 1,000 unit PO DAILY 01/31/18 09/16/20 omega-3 fatty acids 1,000 mg 1,000 mg PO DAILY 10/18/18 09/16/20 capsule Cholecalciferol (Vitamin D3) 5,000 unit PO DAILY 02/07/19 09/16/20 [Vitamin D3] albuterol sulfate 90 mcg/actuation INHALATION 12/11/19 09/16/20 aerosol inhaler beclomethasone dipropionate 40 1 inh INHALATION BID g 12/11/19 09/16/20 mcg/actuation HFA breath activated aerosol bupropion HCl 75 mg tablet 75 mg PO BID tab 09/16/20 09/16/20 duloxetine 60 mg capsule,delayed 60 mg PO BID each 09/16/20 09/16/20 release omeprazole 20 mg capsule,delayed 20 mg PO DAILY cap 09/16/20 09/16/20 release ondansetron HCl 8 mg tablet 8 mg PO Q8H tab 09/16/20 09/16/20 tizanidine 4 mg tablet 4 mg PO Q8H PRN tab 09/16/20 09/16/20 Previous Rx's Medication Instructions Recorded furosemide 40 mg tablet 40 mg PO BID 90 Days #180 tab 11/29/19 losartan 50 mg tablet 50 mg PO DAILY #90 tab 11/29/19 metoprolol tartrate 50 mg tablet 50 mg PO BID #180 tab 11/29/19 spironolactone 100 mg tablet 100 mg PO DAILY #90 tab 11/29/19 acetaminophen 300 mg-codeine 60 mg 1 tab PO Q8H PRN #20 tab 09/15/20 tablet Allergies Allergy/AdvReac Type Severity Reaction Status Date / Time methylprednisolone Allergy Intermediate Unknown Verified 09/16/20 14:32 [From Solu-Medrol] allergy reaction azithromycin Allergy Mild Verified 09/16/20 14:32 [From ZITHROMAX Z-NASIR] morphine [MORPHINE] Allergy Mild Verified 09/16/20 14:32 - Worker's Comp Is this a Worker's Comp case?: No [facility] History - Hepatitis A Screen Drug use history?: No High risk sexual behaviors?: No History of sexually transmitted infection?: No Currently employed?: No Childcare worker?: No Do you have indoor plumbing?: Yes Do you have electricity?: Yes Attestation statement:: This patient has been screened for Hepatitis A risk factors. I have reviewed the patient's past medical history: Yes Medical History: Reports
[2020-09-28 13:39] VITALS: BP 114/71; PULSE 71; RESP 18; TEMP 36.8; O2SAT 98
--- NOTE | 2020-09-28 17:12 | PC.NURSE ---
PT CALLED AND NOTIFIED OF POSITIVE COVID RESULTS
== END 2020-09-28 13:40 | disposition home or self-care (01) ==
PROVIDERS: Emergency Provider Physician Assistant; PCP Emergency Medicine
DX: U07.1 COVID-19 (principal); I10 Essential (primary) hypertension; E78.5 Hyperlipidemia, unspecified; I25.2 Old myocardial infarction; F41.8 Other specified anxiety disorders; I50.9 Heart failure, unspecified; N28.9 Disorder of kidney and ureter, unspecified; M79.7 Fibromyalgia; Z88.5 Allergy status to narcotic agent; Z79.899 Other long term (current) drug therapy
CPT/HCPCS: 99201; U0003

== ENCOUNTER → 2020-10-17 06:17 | Outpatient (CLI) | payer MEDICAID, SELFPAY ==
--- NOTE | 2020-10-17 06:18 | NM_ITS ---
APPROVED REPORT Exam: Nuclear Stress Test Indication: HTN, FM HX, SOB, FATIGUE, PRE-OP Patient Location: Outpatient Stress Tech: Henny Oneill [place] Tech:Estee José LONICelia RT(R)(N) Ht: 5 ft 2 in Wt: 275 lbs Bra Size: 42DD HR: 79 bpm BP: 121/69 mmHg BSA: 2.19 m2 BMI: 50.2 History: HTN, FM HX, SOB, FATIGUE, PRE-OP Procedure: Patient received a 0.4 mg of intravenous Lexiscan, resting heart rate 79 bpm, resting blood pressure 121/69 mmHg, with Lexiscan maximum heart rate achived was 106 bpm which is Less than 85 % of the maximum predicted heart rate and blood pressure was 121/70 mmHg. Electrocardiogram Resting electrocardiogram showed sinus rhythm, with Lexiscan there is less than 1.[address] segment depression noted from the baseline EKG. The EKG portion of the Lexiscan is nondiagnostic. Cardiac Stress and Resting SPECT Images: Cardiac Stress and Resting SPECT images were obtained using technetium 99m Myoview 32.0 mCi stress and 10.50 mCi at rest. Gated SPECT for analysis of segmental wall motion and calculation of the ejection fraction also done. Prone images were also obtained. Cardiac stress and resting SPECT images show uniform myocardial activity without segmental perfusion abnormality, computer derived ejection fraction is over 65% with no regional wall motion abnormality, right ventricle is normal size and contractility. Conclusion: 1. The EKG portion of the Lexiscan is nondiagnostic. 2. No scintigraphic evidence of reversible ischemia seen, computer derived ejection fraction is over 65% with no regional wall motion abnormality, right ventricle is normal size and contractility. 3. Normal Lexiscan Myoview study. Electronically signed by : Vipin Quan, 10/17/2020 13:38:06
--- NOTE | 2020-10-17 06:18 | CA_ITS ---
APPROVED REPORT Exam: Pharmacologic Technologist: Henny Oneill, Ht: 5 ft 2 in Wt: 275 lbs BSA: 2.19 m2 HR: 79 bpm BP: 121/69 mmHg Rhythm: NSR Indications: PreOp Clearance Medical History Previous Cardiac Procedures: CABG, PCI, Myocardial infarction Stress Test Details Test: LEXISCAN HR Resting HR: 86 bpm Max Heart Rate (APMHR): 169 bpm Max HR Achieved: 111 bpm Target HR (85% APMHR): 143 bpm % of APMHR: 65 Recovery HR: 93 bpm BP Resting BP: 121/69 mmHg Max BP: 212/67 mmHg Recovery BP: 115.0/70.0 mmHg ECG Clinical Reason for Termination: Completed Protocol Exercise duration: 04:01 min Highest Stage Achieved: Exercise capacity: 1.0 METs Stress ECG Conclusion No chest pain. No arrhythmias. less than 1.[address] segment changes. Electronically signed by : Vipin Quan, 10/17/2020 13:17:09
== END ==
PROVIDERS: PCP Emergency Medicine; Visit Provider Nurse Practitioner Family
DX: Z01.810 Encounter for preprocedural cardiovascular examination (principal); R06.02 Shortness of breath; R93.1 Abnormal findings on diagnostic imaging of heart and coronary circulation
CPT/HCPCS: 78452; 93017; A9502; J2785

== ENCOUNTER → 2021-02-18 16:28 | Outpatient (CLI) | payer MEDICAID, SELFPAY ==
--- NOTE | 2021-02-18 16:43 | XR_ITS ---
PROCEDURE INFORMATION: Exam: XR Chest Exam date and time: 02/18/2021 4:43 PM Age: 50 years old Clinical indication: Patient HX: Dyspnea after covid in September TECHNIQUE: Imaging protocol: XR of the chest. Views: 2 views. COMPARISON: CR XR CHEST 2V 09/16/2020 3:46 PM FINDINGS: Lungs: Unremarkable. No consolidation. Pleural spaces: Unremarkable. No pleural effusion. No pneumothorax. Heart/Mediastinum: Unremarkable. No cardiomegaly. Bones/joints: Unremarkable. IMPRESSION: No acute findings.
[2021-02-18 16:57] LABS: Basophils # 0.1 K/mm3 (0-0.2); Basophils % 0.7 % (0.1-2.0); Eosinophils # 0.2 K/mm3 (0.0-0.4); Eosinophils % 2.1 % (0.1-12.0); Hematocrit 43.3 % (37.0-47.0); Hemoglobin 14.6 g/dL (12.2-16.2); Lymphocytes # 2.7 K/mm3 (0.7-4.5); Lymphocytes % 25.7 % (10-50); Mean Corpuscular HGB Conc 33.6 g/dL (31.8-35.4); Mean Corpuscular Hemoglobin 30.2 pg (27.0-31.2); Mean Corpuscular Volume 89.9 fl (81-99); Mean Platelet Volume 7.2 fl (7.4-10.4); Monocytes # 0.6 K/mm3 (0.1-1.0); Monocytes % 5.3 % (1.7-9.3); Neutrophils # 6.9 K/mm3 (1.8-7.8); Neutrophils % 66.3 % (37.0-80.0); Platelet Count 478 K/mm3 (142-424); Red Blood Count 4.82 M/mm3 (4.20-5.40); Red Cell Distribution Width 13.6 % (11.5-17.5); White Blood Count 10.5 K/mm3 (4.8-10.8)
[2021-02-25 17:26] LABS: D001-IgE D pteronyssinus <0.10 kU/L (Class 0); D002-IgE D farinae <0.10 kU/L (Class 0); E001-IgE Cat Dander <0.10 kU/L (Class 0); E005-IgE Dog Dander <0.10 kU/L (Class 0); G002-IgE Bermuda Grass <0.10 kU/L (Class 0); G006-IgE Timothy Grass <0.10 kU/L (Class 0); I006-IgE Cockroach, German <0.10 kU/L (Class 0); Immunoglobulin E, Total 14 IU/mL (6-495); M001-IgE Penicillium chrysogen <0.10 kU/L (Class 0); M002-IgE Cladosporium herbarum <0.10 kU/L (Class 0); M003-IgE Aspergillus fumigatus <0.10 kU/L (Class 0); M006-IgE Alternaria alternata <0.10 kU/L (Class 0); T001-IgE Maple/Box Elder <0.10 kU/L (Class 0); T003-IgE Common Silver Birch <0.10 kU/L (Class 0); T006-IgE Cedar, Mountain <0.10 kU/L (Class 0); T007-IgE Oak, White <0.10 kU/L (Class 0); T008-IgE Elm, American <0.10 kU/L (Class 0); T010-IgE Walnut <0.10 kU/L (Class 0); T011-IgE Maple Leaf Sycamore <0.10 kU/L (Class 0); T014-IgE Cottonwood <0.10 kU/L (Class 0); T015-IgE Ash, White <0.10 kU/L (Class 0); T022-IgE Pecan, Hickory <0.10 kU/L (Class 0); T070-IgE White Mulberry <0.10 kU/L (Class 0); W001-IgE Ragweed, Short <0.10 kU/L (Class 0); W011-IgE Thistle, Russian <0.10 kU/L (Class 0); W014-IgE Pigweed, Common <0.10 kU/L (Class 0); W018-IgE Sheep Sorrel <0.10 kU/L (Class 0)
[2021-02-26 05:51] LABS: E072-IgE Mouse Urine <0.10 kU/L (Class 0)
== END ==
PROVIDERS: PCP Emergency Medicine; Visit Provider Internal Medicine Pulmonary Disease
DX: J45.909 Unspecified asthma, uncomplicated (principal)
CPT/HCPCS: 36415; 71046; 82785; 85025; 85378; 86003

== ENCOUNTER → 2021-02-26 12:49 | Outpatient (CLI) | payer MEDICAID, SELFPAY ==
--- NOTE | 2021-02-26 12:49 | NM_ITS ---
PROCEDURE: NM PUL VENT AND PERFUSE CLINICAL INDICATION: Dyspnea, history of Covid19 pneumonia, elevated D-dimer COMPARISON: No exams were available for comparison FINDINGS: Dose: 36.1 mCi technetium DTPA inhaled 8.42 mCi technetium MAA IV There was normal distribution within the lungs on both the ventilation and perfusion images. No matched or mismatched defects are evident. Incidental note is made of some gastric and intestinal activity. IMPRESSION: Normal exam. No evidence of pulmonary embolus. Dictated by: Gerson Mcneill MD 02/26/2021 18:34 Gerson Mcneill MD in [place] 02/26/2021 18:34
--- NOTE | 2021-02-26 13:50 | XR_ITS ---
PROCEDURE: XR CHEST 2V CLINICAL HISTORY: elavated D-dimer Shortness of breath COMPARISON: CT AGCHEST CT angio chest from 02/14/2019 CR XR CHEST 2V from 12/29/2019 CR XR CHEST 2V from 09/16/2020 CR XR CHEST 2V from 02/18/2021 FINDINGS: The cardiomediastinal silhouette and pulmonary vascularity are within normal limits. The lungs are clear without infiltrates, suspicious nodules, or pleural effusions. Degenerative changes thoracic spine. Old granulomatous disease. IMPRESSION: No change with no acute finding Dictated by: Gerson Mcneill MD 02/26/2021 15:38 Gerson Mcneill MD in [place] 02/26/2021 15:38
== END ==
PROVIDERS: PCP Emergency Medicine; Visit Provider Internal Medicine Pulmonary Disease
DX: R79.89 Other specified abnormal findings of blood chemistry (principal)
CPT/HCPCS: 71046; 78582; A9540; A9567

== ENCOUNTER → 2021-03-04 09:45 | Outpatient (CLI) | payer MEDICAID, SELFPAY ==
--- NOTE | 2021-03-04 09:55 | CA_ITS ---
APPROVED REPORT Bilateral Lower Extremity Venous Study for DVT. Search Lead: CT Indications elevated d-dimer, shortness of breath, PRE-OP FOR KNEE REPLACEMENT Risk Factors Obesity Vein Imaging CFV (R): compressive, spontaneous, phasic, augmentation SFJ (R): compressive, spontaneous, phasic, augmentation FEM (R): compressive, spontaneous, phasic, augmentation POP (R): compressive, spontaneous, phasic, augmentation DFV (R): compressive, spontaneous, phasic, augmentation PTV (R): compressive, spontaneous, phasic, augmentation GSV (R): compressive, spontaneous, phasic, augmentation SSV (R): Not Visualized Peroneals (R):compressive, spontaneous, phasic, augmentation GAS (R): compressive, spontaneous, phasic, augmentation CFV (L): compressive, spontaneous, phasic, augmentation SFJ (L): compressive, spontaneous, phasic, augmentation FEM (L): compressive, spontaneous, phasic, augmentation POP (L): compressive, spontaneous, phasic, augmentation DFV (L): compressive, spontaneous, phasic, augmentation PTV (L): compressive, spontaneous, phasic, augmentation GSV (L): compressive, spontaneous, phasic, augmentation SSV (L): Not Visualized Peroneals (L):compressive, spontaneous, phasic, augmentation GAS (L): compressive, spontaneous, phasic, augmentation Findings Bilateral venous doppler negative for DVT/SVT. Vessels compressible. No reflux noted Bilateral distal Femoral vein and peroneals difficult to image, due to body habitus. Conclusion Bilateral venous doppler negative for DVT/SVT. Vessels compressible. No reflux noted Bilateral distal Femoral vein and peroneals difficult to image, due to body habitus. Critical Notification Date: 03/04/2021 Time: 11:32 Report Read Back Electronically signed by : Gerson Mcneill MD 03/04/2021 14:37:53
[2021-03-04 10:26] LABS: D-Dimer 1.32 ug/mL (0.0-0.5)
== END ==
PROVIDERS: PCP Emergency Medicine; Visit Provider Physician Assistant
DX: R06.02 Shortness of breath (principal)
CPT/HCPCS: 36415; 85378; 93970

== ENCOUNTER → 2021-03-09 15:43 | Outpatient (CLI) | payer MEDICAID, SELFPAY ==
--- NOTE | 2021-03-09 16:12 | CT_ITS ---
PROCEDURE INFORMATION: Exam: CTA Chest With Contrast Exam date and time: 03/09/2021 4:12 PM Age: 50 years old Clinical indication: Abnormal findings; Abnormal diagnostic tests; Elevated d-dimer; Dyspnea; Additional info: Dyspnea/elevated d dimer TECHNIQUE: Imaging protocol: Computed tomographic angiography of the chest with contrast. 3D rendering (Not supervised by radiologist): MIP and/or 3D reconstructed images were created by the technologist. Radiation optimization: All CT scans at this facility use at least one of these dose optimization techniques: automated exposure control; mA and/or kV adjustment per patient size (includes targeted exams where dose is matched to clinical indication); or iterative reconstruction. Contrast material: ISO 370; Contrast volume: 70 ml; Contrast route: INTRAVENOUS (IV); [facility] 10:07 PM FINDINGS: Pulmonary arteries: No pulmonary embolus. Aorta: Mildly dilated ascending thoracic aorta again evident, 3.9 cm greatest diameter. No dissection. Lungs: No lobar consolidation, effusion or edema. Pleural spaces: Unremarkable. No pneumothorax. No pleural effusion. Heart: Unremarkable. No cardiomegaly. No pericardial effusion. Lymph nodes: Unremarkable. No enlarged lymph nodes. Bones/joints: Unremarkable. No acute fracture. Soft tissues: Unremarkable. Other findings: Old granulomatous disease. IMPRESSION: 1. No pulmonary embolus. 2. Mildly dilated ascending thoracic aorta again evident, 3.9 cm greatest diameter. No dissection. 3. No lobar consolidation, effusion or edema.
[2021-03-09 17:27] LABS: Blood Urea Nitrogen 24 mg/dl (7-17); Estimated Glomerular Filt Rate 52 ml/min (>60); GFR (African American) 63 ML/MIN (>60)
[2021-03-09 17:57] LABS: Basophils # 0.1 K/mm3 (0-0.2); Basophils % 0.9 % (0.1-2.0); Eosinophils # 0.3 K/mm3 (0.0-0.4); Hematocrit 42.9 % (37.0-47.0); Hemoglobin 14.1 g/dL (12.2-16.2); Lymphocytes # 2.2 K/mm3 (0.7-4.5); Lymphocytes % 25.3 % (10-50); Mean Corpuscular HGB Conc 32.8 g/dL (31.8-35.4); Mean Corpuscular Volume 91.5 fl (81-99); Mean Platelet Volume 7.6 fl (7.4-10.4); Monocytes # 0.6 K/mm3 (0.1-1.0); Monocytes % 6.7 % (1.7-9.3); Neutrophils # 5.7 K/mm3 (1.8-7.8); Neutrophils % 64.1 % (37.0-80.0); Platelet Count 439 K/mm3 (142-424); Red Blood Count 4.69 M/mm3 (4.20-5.40); Red Cell Distribution Width 13.9 % (11.5-17.5); White Blood Count 8.8 K/mm3 (4.8-10.8)
== END ==
PROVIDERS: PCP Emergency Medicine; Visit Provider Physician Assistant
DX: Z01.810 Encounter for preprocedural cardiovascular examination (principal); R06.00 Dyspnea, unspecified; R06.02 Shortness of breath; R00.0 Tachycardia, unspecified; R00.2 Palpitations; I50.9 Heart failure, unspecified; I11.0 Hypertensive heart disease with heart failure; E78.2 Mixed hyperlipidemia; R79.89 Other specified abnormal findings of blood chemistry; B94.8 Sequelae of other specified infectious and parasitic diseases; G47.33 Obstructive sleep apnea (adult) (pediatric); R63.5 Abnormal weight gain; Z68.43 Body mass index [BMI] 50.0-59.9, adult
CPT/HCPCS: 36415; 71275; 82565; 84520; 85025; Q9967

== ENCOUNTER → 2021-03-10 15:40 | Outpatient (CLI) | payer MEDICAID, SELFPAY ==
[2021-03-10 17:15] LABS: Erythrocyte Sedimentation Rate 23 mm/hr (0-30)
[2021-03-10 17:20] LABS: Iron 92 ug/dL (37-170)
[2021-03-10 17:27] LABS: C-Reactive Protein 8.2 mg/L (0-4)
[2021-03-10 17:28] LABS: D-Dimer 1.27 ug/mL (0.0-0.5)
[2021-03-10 17:30] LABS: Total Iron Binding Capacity 397 ug/dL (265-497)
[2021-03-10 17:57] LABS: Ferritin 37.3 ng/ml (11.1-264)
[2021-03-12 09:26] LABS: RA Latex Turbid. 14.4 IU/mL (0.0-13.9)
[2021-03-12 15:27] LABS: Anti-Centromere B Antibodies <0.2 AI (0.0-0.9); Anti-DNA (DS) Ab Qn <1 IU/mL (0-9); Anti-Jo-1 <0.2 AI (0.0-0.9); Anti-Smith Antibody <0.2 AI (0.0-0.9); Antichromatin Antibodies <0.2 AI (0.0-0.9); Antiscleroderma-70 Antibodies <0.2 AI (0.0-0.9); RNP Antibodies <0.2 AI (0.0-0.9); Sjogren's Anti-SS-A <0.2 AI (0.0-0.9); Sjogren's Anti-SS-B <0.2 AI (0.0-0.9)
[2021-03-12 15:41] LABS: Peripheral Smear Review Scanned Result
[2021-03-13 00:07] LABS: Anti-Cyclic Citrullinated Pept 3 units (0-19)
[2021-03-14 02:08] LABS: Lupus Reflex Interpretation Comment: (.); PTT-LA 33.3 sec (0.0-51.9); dRVVT 46.7 sec (0.0-47.0)
== END ==
PROVIDERS: Visit Provider Physician Assistant
DX: D47.3 Essential (hemorrhagic) thrombocythemia (principal); M25.50 Pain in unspecified joint; R79.89 Other specified abnormal findings of blood chemistry; Z84.0 Family history of diseases of the skin and subcutaneous tissue
CPT/HCPCS: 36415; 82728; 83540; 83550; 85378; 85613; 85651; 86140; 86200; 86225; 86235; 86431

== ENCOUNTER → 2021-03-24 09:43 | Outpatient (CLI) | payer MEDICAID, SELFPAY ==
--- NOTE | 2021-03-24 11:44 | PC.NURSE ---
WALK TEST NOT PERFORMED DUE TO TACHYCARDIA
== END ==
PROVIDERS: PCP Emergency Medicine; Visit Provider Internal Medicine Pulmonary Disease
DX: R06.02 Shortness of breath (principal); R00.2 Palpitations; R00.0 Tachycardia, unspecified; E78.2 Mixed hyperlipidemia; I10 Essential (primary) hypertension; R79.89 Other specified abnormal findings of blood chemistry
CPT/HCPCS: 93270; 94060; 94726; 94729

== ENCOUNTER → 2021-05-06 14:59 | Outpatient (CLI) | payer MEDICAID, SELFPAY | PROVIDERS: Visit Provider Nurse Practitioner Family | DX: Z01.812 Encounter for preprocedural laboratory examination (principal); Z11.52 Encounter for screening for COVID-19 | CPT/HCPCS: U0003 ==

== ENCOUNTER → 2021-05-07 20:21 | Outpatient (CLI) | payer MEDICAID, SELFPAY | PROVIDERS: PCP Emergency Medicine; Visit Provider Nurse Practitioner Family | DX: G47.30 Sleep apnea, unspecified (principal); E66.9 Obesity, unspecified; Z68.42 Body mass index [BMI] 45.0-49.9, adult | CPT/HCPCS: 95810 ==

== ENCOUNTER → 2021-06-04 14:54 | Outpatient (CLI) | payer MEDICAID, SELFPAY | PROVIDERS: PCP Emergency Medicine; Visit Provider Internal Medicine Pulmonary Disease | DX: Z01.818 Encounter for other preprocedural examination (principal); Z11.52 Encounter for screening for COVID-19; R06.00 Dyspnea, unspecified | CPT/HCPCS: 94070; 95070; J7674; U0003 ==

== ENCOUNTER 2021-06-05 09:29 | Day surgery (SDC) | payer MEDICAID, SELFPAY ==
[2021-05-27 13:39] VITALS: BMI 49.1
[2021-06-05 10:26] VITALS: BP 94/56; PULSE 68; RESP 18; TEMP 36.2; O2SAT 98
--- NOTE | 2021-06-05 10:35 | P.PN_ITS ---
[facility] Anesthesia Checklist - Patient Identification Patient Identification: Arm Band - Structural Data Admitted From: Home Planned Operative Procedure/s: EGD Consent for Planned Operative Procedure(s) Verified: Yes - NPO Status Verified Time NPO: 00:00 - Airway Assessment C-Spine Mobility Assessed: Yes TMJ Mobility Assessed: Yes Dentition: Good Dentition - Neurological Assessment Level of Consciousness: Awake Hx Seizures: No Numbness or tingling in extremities: No - Anesthesia Plan Anesthesia Risk discussed: Yes Anesthesia Plan: Verified ASA Class: III Anesthesia Type: MAC [facility] History I have reviewed the patient's past medical history: Yes Medical History: Reports:: Anxiety, Asthma, Congestive Heart Failure, Depression, Hyperlipidemia, Hypertension, Internal Pacemaker, Myocardial Infarction, Palpitations, Renal Disease, Renal Insufficiency Denies:: Cancer, Diabetes Mellitus Type 1, Diabetes Mellitus Type 2, MRSA, Seizures *Have you ever received a pneumonia vaccine?: No *Have you received a flu vaccine this season?: No Other Medical History: Reports: Arthritis, Fibromyalgia Anesthesia experience/problems:: None Laterality Cases: Bilateral: Arthroscopy Knee, Carpal Tunnel Release, Tonsillectomy Other Surgeries: Yes: Cardiac Catheterization, Cholecystectomy, Colonoscopy, C- section, Hernia Repair, Hysterectomy-Total, Hysterectomy-Partial, Pacemaker, Other Amputation: No Fractures: No - *Social History Last grade of school completed: Advanced degree Smoking Status: Never smoker Alcohol Intake: never Substance Use Type: denies use *Occupational Status:: unemployed Housing: house Household Members: none *Travel in the last 8 weeks: None - Psychiatric History Pschychiatric History:: Reports:: Anxiety, Depression Family Hx:: Hypertension, Stroke, Diabetes, Hyperlipidemia, Heart Attack
--- NOTE | 2021-06-05 11:32 | HMH.PROC ---
[facility] Procedure Note Procedure Note:: Colonoscopy Procedure Report: Colonoscopy Endoscopist: Levi Collins II, MD Referring physician: Lul Urena MD Date of Procedure: June 05, 2021 Equipment: Olympus 190 variable stiffness pediatric colonoscope Sedation: MAC sedation Indication: Mrs. Humphrey is a 50-year-old female who is here for diagnostic colonoscopy secondary to a change in bowel habits with constipation. She was taking hydrocodone after her knee replacement. The patient did try bisacodyl which did cause cramping. Her maternal grandfather and possibly 2 maternal great uncles had colon cancer. She did have a colonoscopy with [place] 16 to 18 years ago. Her last colonoscopy was in [place] 4 to 5 years ago and was normal. She does get some rare spotting of blood from hemorrhoids. She reports no unintentional weight loss. Procedure: Prior to the procedure, a history and physical exam was performed, and patient's medications and allergies were reviewed. The risks, benefits and alternatives of the sedation and procedure were discussed with the patient. All questions were answered and informed consent was obtained. The patient was brought to the procedure room. Patient identification and proposed procedure were verified by the physician and the nurse. The patient was placed in a left lateral decubitus position and the scope was passed under direct vision. Throughout the procedure, the patient's blood pressure, pulse, and oxygen saturations were monitored continuously. The colonoscopy was accomplished without difficulty. The patient tolerated the procedure well. Findings: On digital rectal examination there was normal rectal tone. There were no external hemorrhoids. The colonoscope was introduced through the anal canal to the rectum and advanced to the cecum. The ileocecal valve and appendiceal orifice were identified. The scope was advanced a short distance into the ileum which appeared grossly normal. The scope was then withdrawn into the colon. The cecum, ascending, transverse, descending, sigmoid and rectum were grossly normal. There were no mucosal abnormalities identified. Upon retroflexion within the rectum there were grade 1-2 internal hemorrhoids.The preparation was fair throughout with [place] Preparation Score of 7 out of 9. The cecal time was 10 minutes. Impression: 1. Normal colonoscopy with intubation of the terminal ileum 2. Grade 1-2 internal hemorrhoids Plan: We will discuss treatment options for her constipation. I did see her in the office in January 2021 and suggested Movantik. The patient will not require surveillance colonoscopy again for 10 years by ACS guidelines.
[2021-06-05 11:37] VITALS: BP 98/55; PULSE 72; RESP 18; TEMP 36.3; O2SAT 98
[2021-06-05 11:47] VITALS: BP 105/65; PULSE 62; RESP 18; O2SAT 98
[2021-06-05 11:57] VITALS: BP 110/76; PULSE 63; RESP 18; O2SAT 96
[2021-06-05 12:05] VITALS: BP 104/67; PULSE 63; RESP 18; O2SAT 94
== END 2021-06-05 12:13 | disposition home or self-care (01) ==
LOC: OUTP 09:30
PROVIDERS: PCP Emergency Medicine; Visit Provider Internal Medicine Gastroenterology
PROC: 0DJD8ZZ Inspection of Lower Intestinal Tract, Via Natural or Artificial Opening Endoscopic (ICD-10-PCS; CPT 45378; principal; 2021-06-05 11:00)
DX: R19.4 Change in bowel habit (principal); K64.0 First degree hemorrhoids; J45.909 Unspecified asthma, uncomplicated; F41.9 Anxiety disorder, unspecified; I11.0 Hypertensive heart disease with heart failure; I50.9 Heart failure, unspecified; F32.9 Major depressive disorder, single episode, unspecified; E78.5 Hyperlipidemia, unspecified; Z95.0 Presence of cardiac pacemaker; I25.2 Old myocardial infarction; R00.2 Palpitations
CPT/HCPCS: 45378; J2704

== ENCOUNTER → 2021-06-30 08:04 | Outpatient (CLI) | payer MEDICAID, SELFPAY | PROVIDERS: PCP Emergency Medicine; Visit Provider Nurse Practitioner | DX: Z20.822 Contact with and (suspected) exposure to COVID-19 (principal) | CPT/HCPCS: C9803; U0003; U0005 ==

== ENCOUNTER → 2021-07-12 12:22 | Outpatient (CLI) | payer MEDICAID, SELFPAY ==
[2021-07-12 14:26] VITALS: BMI 41.9
== END ==
PROVIDERS: PCP Emergency Medicine; Visit Provider Nurse Practitioner Family
DX: Z11.1 Encounter for screening for respiratory tuberculosis (principal)
CPT/HCPCS: 86580

== ENCOUNTER 2021-07-30 07:56 | Emergency (ER) | payer MEDICAID, SELFPAY ==
[2021-07-30 07:57] VITALS: BP 151/101; PULSE 79; RESP 16; TEMP 36.7; O2SAT 99; BMI 51.0
--- NOTE | 2021-07-30 08:03 | HMH.EDGENADL ---
ED Disposition Clinical Impression: Cough Disposition: Home, Self-Care Condition on Discharge: Good Additional Instructions: Home medicines as directed. Follow-up with PCP/pulmonology as directed. Return the emergency department chest pain, fever, shortness of breath. Referrals: Lul Urena MD [Primary Care Provider] - 3 days Time of Disposition: 08:14 - Critical Care Critical Care Time: No Attestation: On 07/30/21, the high probability of a clinically significant, sudden or life threatening deterioration of the following system(s) required my full and direct attention, intervention and personal management. The time I documented below is in addition to time spent performing reported procedures but includes the following listed in this critical care notation. Medical Decision Making - Medical Records Medical records reviewed: Yes: I reviewed the patient's medical records. - [place] Inquiry Pt receiving controlled substance: No Vital Signs: 07/30/21 07:57 Temperature 98.0 F Temperature Source Oral Pulse Rate [Right] 79 Respiratory Rate 16 Blood Pressure [Right Arm] 151/101 H Blood Pressure Mean [Right Arm] 117 Blood Pressure Source [Right Arm] Automatic Cuff Blood Pressure Position [Right Arm] Sitting 02 Sat by Pulse Oximetry 99 Oxygen Delivery Method Room Air Orders (Tests/Meds): ORDERS Category Date Time Status XR chest portable Stat Exams 07/30/21 08:11 Ordered Rapid PCR Covid and Flu A/B Stat Lab 07/30/21 08:15 Received - Radiology Data #1 Image(s): Chest Image Reviewed: Yes I reviewed the patient's radiology results Preliminary Findings: Normal/NAD Medical Decision Narrative: 50yo F evaluated for coughing. Physical exam is benign. No wheezes are appreciated. Patient would like a chest x-ray and Covid test. She has no clinical signs of Covid. Noted to be hypertensive at 150/101. Reports she takes blood pressure medicine at 9:00 in the morning. General Adult HPI - General Stated complaint: wheezing, cough, runny nose, fever Time Seen by Provider: 07/30/21 08:03 Mode of Arrival: Ambulatory - History of Present Illness HPI narrative: 50yo F presents the emergency department secondary to 10 days of cough. Denies fever chills. Reports she already has Tessalon Perles albuterol inhaler. She is concerned for expiratory wheezing. She states her condition has not improved with Tessalon Perles. Patient has been seen by pulmonology and had multiple tests performed but is waiting for her follow-up visit to discuss results. Denies any other acute signs or symptoms. - Related Data Home Medications Medication Instructions Recorded Confirmed Vitamin E (Dl,Tocopheryl Acet) 1,000 unit PO DAILY 01/31/18 06/02/21 [Vitamin E] omega-3 fatty acids 1,000 mg 1,000 mg PO DAILY 10/18/18 06/02/21 capsule Cholecalciferol (Vitamin D3) 5,000 unit PO DAILY 02/07/19 06/02/21 [Vitamin D3] naloxegol 25 mg tablet 25 mg PO DAILY tab 03/09/21 06/02/21 omeprazole 20 mg capsule,delayed 20 mg PO DAILY cap 03/24/21 06/02/21 release Fluticasone/Vilanterol [Breo 1 inh IH DAILY 05/27/21 06/02/21 Ellipta 100-25 Mcg INH] Hydrocodone/Acetaminophen 1 tab PO Q8HP PRN 05/27/21 06/02/21 [Hydrocodone-Acetamin 7.5-325] Losartan Potassium [Cozaar 50mg 50 mg PO DAILY 05/27/21 06/02/21 Tablets] Metoprolol Succinate [Metoprolol 75 mg PO DAILY 05/27/21 06/02/21 Succinate 50mg Tablet*] Duloxetine HCl [Cymbalta] See Rx Instructions .ROUTE .COMPLEX 06/05/21 ondansetron HCL [Ondansetron 8mg See Rx Instructions .ROUTE .COMPLEX 06/05/21 tab*] Previous Rx's Medication Instructions Recorded furosemide 40 mg tablet 40 mg PO BID 90 Days #180 tab 12/16/20 spironolactone 100 mg tablet 100 mg PO DAILY #90 tab 12/16/20 albuterol sulfate 90 mcg/actuation 1 inh INHALATION QID PRN #8.5 g 02/18/21 aerosol inhaler bupropion HCl 75 mg tablet See Rx Instructions .ROUTE 07/21/21 .COMPLEX
--- NOTE | 2021-07-30 08:11 | XR_ITS ---
PROCEDURE: XR CHEST PORTABLE CLINICAL HISTORY: cough Cough x2 weeks COMPARISON: CR XR CHEST 2V from 09/16/2020 CR XR CHEST 2V from 02/18/2021 CR XR CHEST 2V from 02/26/[address] ANGIO CHEST from 03/09/2021 FINDINGS: The patient is morbidly obese. This limits radiographic evaluation of the chest. Cardiomediastinal silhouette is not enlarged. Lung volumes are small 2 to extensive intra-abdominal lipomatosis. Mediastinal structures are midline. There is no definite pleural fluid. No pneumothorax. Osseous structures are obscured by overlying soft tissues. Lungs appear overall clear. IMPRESSION: No acute findings. Dictated by: Adela Lino MD 07/30/2021 08:46 Adela Lino MD in [place] 07/30/2021 08:46
--- NOTE | 2021-07-30 08:21 | PC.NURSE ---
swabbed PT for covid
[2021-07-30 08:28] LABS: Coronavirus 19, PCR Not Detected (NotDetected); Influenza A, PCR Not Detected (NotDetected); Influenza B, PCR Not Detected (NotDetected)
[2021-07-30 08:48] VITALS: BP 138/92; PULSE 85; RESP 16; TEMP 36.7; O2SAT 98
== END 2021-07-30 08:49 | disposition home or self-care (01) ==
PROVIDERS: Emergency Provider Family Medicine; PCP Emergency Medicine
DX: R05.1 Acute cough (principal); R50.9 Fever, unspecified; F41.8 Other specified anxiety disorders; M79.7 Fibromyalgia; I50.9 Heart failure, unspecified; E78.5 Hyperlipidemia, unspecified; I10 Essential (primary) hypertension; I25.2 Old myocardial infarction; Z79.899 Other long term (current) drug therapy
CPT/HCPCS: 71045; 99282; C9803; U0003; U0005

== ENCOUNTER 2021-08-08 10:33 | Emergency (ER) | payer MEDICAID, SELFPAY ==
[2021-08-08 10:50] VITALS: BP 141/97; PULSE 95; RESP 16; TEMP 36.9; O2SAT 97; BMI 51.2
[2021-08-08 11:00] VITALS: BP 141/97; PULSE 95; RESP 16; TEMP 36.9
--- NOTE | 2021-08-08 11:12 | HMH.EDUTC ---
[facility] [place] Clinical Impression: COVID-19 Acute bronchitis Qualifiers: Bronchitis organism: unspecified organism Qualified Code(s): J20.9 - Acute bronchitis, unspecified Disposition: Home, Self-Care Condition on Discharge: Good Instructions: Acute Bronchitis, DI for Acute Bronchitis, DI for COVID-19 (Suspected or Confirmed ), Preventing the Spread of Coronavirus Discharge Instructions Additional Instructions: Drink plenty of fluids. Take tylenol or ibuprofen for pain or fever. Take the medications as directed. Follow up with your regular doctor. GO TO THE ER FOR ANY WORSENING SYMPTOMS Quarantine until you know the results of your covid-19 test. If it is positive, the health department should call you and give you further instructions about your length of Quarantine and other things. Notify your workplace of your results and follow their instructions regarding return to work/school. Prescriptions: Benzonatate [Benzonatate 100mg cap] 100 mg PO TIDP PRN #30 cap PRN Reason: Cough Transmission Status: Received by [id number] predniSONE [Deltasone 10mg tablet] 10 mg PO DAILY 9 Days #21 tab Transmission Status: Received by [id number] Azithromycin [Z-Delgado 250mg Tab*] 250 mg PO UD DOSE PK #6 tab Transmission Status: Received by [id number] Referrals: Lul Urena MD [Primary Care Provider] - Forms: Work/School Release Time of Disposition: 11:21 Medical Decision Making - Medical Records Medical records reviewed: No: I reviewed the patient's medical records. - [place] Inquiry Pt receiving controlled substance: No Vital Signs: 08/08/21 10:50 08/08/21 11:00 Temperature 98.5 F 98.5 F Temperature Source Oral Pulse Rate 95 H Pulse Rate [Left] 95 H Respiratory Rate 16 16 Blood Pressure 141/97 H Blood Pressure [Right Arm] 141/97 H Blood Pressure Mean [Right Arm] 111 02 Sat by Pulse Oximetry 97 Orders (Tests/Meds): ORDERS Category Date Time Status Covid-19 Nasal PCR ([facility]) Routine Lab 08/08/21 11:21 Received [facility] [place] - General Stated complaint: covid test/symptoms Time Seen by Provider: 08/08/21 11:12 Mode of Arrival: Ambulatory Source of Information: Patient Limitations: No Limitations Description of Symptoms (Recalled from Triage Doc. by RN): pt was exposed at work to a pt positive for covid. pt is asymptomatic. 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 She has been coughing and having chest congestion for the past 2 weeks. She had a negative covid-19 test done about 7 days ago, but since then she has been around the sick dad daily. She denies any chills, fever, body aches, or other symptoms. - Related Data Home Medications Medication Instructions Recorded Confirmed Vitamin E (Dl,Tocopheryl Acet) 1,000 unit PO DAILY 01/31/18 06/02/21 [Vitamin E] omega-3 fatty acids 1,000 mg 1,000 mg PO DAILY 10/18/18 06/02/21 capsule Cholecalciferol (Vitamin D3) 5,000 unit PO DAILY 02/07/19 06/02/21 [Vitamin D3] naloxegol 25 mg tablet 25 mg PO DAILY tab 03/09/21 06/02/21 omeprazole 20 mg capsule,delayed 20 mg PO DAILY cap 03/24/21 06/02/21 release Fluticasone/Vilanterol [Breo 1 inh IH DAILY 05/27/21 06/02/21 Ellipta 100-25 Mcg INH] Hydrocodone/Acetaminophen 1 tab PO Q8HP PRN 05/27/21 06/02/21 [Hydrocodone-Acetamin 7.5-325] Losartan Potassium [Cozaar 50mg 50 mg PO DAILY 05/27/21 06/02/21 Tablets] Metoprolol Succinate [Metoprolol 75 mg PO DAILY 05/27/21 06/02/21 Succinate 50mg Tablet*] Duloxetine HCl [Cymbalta] See Rx Ins
== END 2021-08-08 11:29 | disposition home or self-care (01) ==
PROVIDERS: Emergency Provider Nurse Practitioner Family; PCP Emergency Medicine
DX: U07.1 COVID-19 (principal); J20.9 Acute bronchitis, unspecified; I50.9 Heart failure, unspecified; I10 Essential (primary) hypertension; F41.8 Other specified anxiety disorders; E78.5 Hyperlipidemia, unspecified; Z79.899 Other long term (current) drug therapy
CPT/HCPCS: 99202; C9803; G0463; U0003; U0005